=== PATIENT | male | born 1945 | race Caucasian/White ===

== ENCOUNTER → 2016-09-21 07:03 | Outpatient (CLI) | payer MEDICARE ==
[2010-07-17 12:59] VITALS: BMI 21.7
== END | disposition home or self-care (01) ==
LOC: D.CT 07:03
DX: A31.0 Pulmonary mycobacterial infection (principal)

== ENCOUNTER → 2017-01-15 09:53 | Outpatient (CLI) | payer MEDICARE ==
[2010-07-17 12:59] VITALS: BMI 21.7
== END | disposition home or self-care (01) ==
LOC: D.CT 09:53 → D.LAB 11:15 → D.CT 11:15
DX: J18.8 Other pneumonia, unspecified organism (principal)

== ENCOUNTER 2017-02-01 07:18 | Inpatient (IN) | payer MEDICARE ==
[2017-02-01] VITALS (8 sets, daily range): BP systolic 128–185; BP diastolic 74–94; BMI 21.0
[~2017-02-01] VITALS: Ht 167.6 cm; Wt 60.5 kg
[2017-02-01 08:30] LABS: ANION GAP 13.5 mmol/L (8-16); CALCIUM 9.1 mg/dL (8.5-10.1); CARBON DIOXIDE 25.8 mmol/L (21.0-32.0); CREATININE - SERUM 1.2 mg/dL (0.6-1.3); POTASSIUM - SERUM 4.3 mmol/L (3.5-5.1)
[2017-02-01 08:34] LABS: BASOPHILS 0.4 % (0-2); EOSINOPHILS 7.5 % (0-7); HEMOGLOBIN 15.9 g/dL (13.5-17.5); LYMPHOCYTES 26.2 % (15-50); MCHC 34.6 g/dL (31.0-37.0); MCV 101.3 fL (80.0-100.0); MEAN PLATELET VOLUME 10.9 fL (7.4-10.4); MONOCYTES 11.8 % (2-11); NEUTROPHILS 54.1 % (40-80); PLATELET COUNT 125 10x3/uL (130-400); RBC 4.54 10x6/uL (4.20-6.10); RDW 12.5 % (11.5-14.5); WBC 5.5 10x3/uL (4.8-10.8)
[2017-02-01 08:39] LABS: APTT 27.7 SECONDS (22.8-39.4); INR 1.12 (0.85-1.17); PROTIME 14.3 SECONDS (11.6-15.0)
[2017-02-01] MEDS ORDERED: LOPRESSOR25 MG PO (09:47)
[2017-02-01] MEDS ORDERED: LISINOPRIL5 MG PO (09:48)
[2017-02-01] MEDS ORDERED: XANAX0.5 MG PO (09:48)
--- NOTE | 2017-02-01 14:43 | NUR ---
CHEST TUBE HOOKED TO 20CM OF H2O SUCTION
--- NOTE | 2017-02-01 17:15 | NUR ---
TRANSFER FROM [place] BY W/C. TELEMETRY SR. IV PATENT. CT TO 20 CM SUCTION. CALL LIGHT IN REACH. WILL CONT. PLAN OF CARE.
--- NOTE | 2017-02-01 19:00 | NUR ---
INITIAL ROUNDS MADE. PT SITTING UP IN BED WITH FAMILY IN ROOM. DRSG TO RIGHT LAT CHEST TUBE CDI. CONNECTED TO WALL SUCTION, NO DRAINAGE NOTED IN CANISTER, ONLY IN TUBING. WILL CONT TO MONITOR.
[2017-02-02] VITALS (7 sets, daily range): BP systolic 100–156; BP diastolic 53–87; Ht 167.6 cm; Wt 60.5 kg
--- NOTE | 2017-02-02 01:15 | NUR ---
RESTING WELL WITH EYES CLOSED, TELE SR. CONT TO MONITOR.
[2017-02-02 06:08] LABS: BASOPHILS 0.5 % (0-2); EOSINOPHILS 5.1 % (0-7); HEMATOCRIT 41.2 % (42.0-54.0); HEMOGLOBIN 13.9 g/dL (13.5-17.5); LYMPHOCYTES 22.1 % (15-50); MCH 34.3 pg (26.0-34.0); MCHC 33.7 g/dL (31.0-37.0); MCV 101.7 fL (80.0-100.0); MEAN PLATELET VOLUME 10.9 fL (7.4-10.4); MONOCYTES 15.6 % (2-11); NEUTROPHILS 56.7 % (40-80); RBC 4.05 10x6/uL (4.20-6.10); RDW 12.6 % (11.5-14.5)
[2017-02-02 06:11] LABS: WBC 4.1 10x3/uL (4.8-10.8)
[2017-02-02 06:12] LABS: ALBUMIN 3.1 g/dL (3.4-5.0); ALKALINE PHOSPHATASE 130 U/L (46-116); ALT (SGPT) 43 U/L (10-68); BILIRUBIN - TOTAL 0.61 mg/dL (0.2-1.3); CALC OSMOLALITY 270 mosm/kg (275-300); CALCIUM 8.5 mg/dL (8.5-10.1); CARBON DIOXIDE 26.4 mmol/L (21.0-32.0); CHLORIDE - SERUM 103 mmol/L (98-107); CREATININE - SERUM 0.9 mg/dL (0.6-1.3); GLUCOSE 107 mg/dL (74-106); PLATELET COUNT 95 10x3/uL (130-400); POTASSIUM - SERUM 4.3 mmol/L (3.5-5.1); SODIUM 136 mmol/L (136-145); eGFR NON AFRICAN AMERICAN 89 mL/min (90-120)
[2017-02-02 06:14] LABS: UREA NITROGEN 10 mg/dL (7-18)
--- NOTE | 2017-02-02 06:28 | NUR ---
SITTING UP IN BED, NO NEEDS OR C/O VOICED AT THIS TIME. CHEST TUBE STILL REMAINS EMPTY CANISTER, SMALL AMT DRAINAGE IN TUBING.
[2017-02-02 06:38] LABS: PLATELET ESTIMATE DECREASED
--- NOTE | 2017-02-02 07:13 | NUR ---
PT IS SITTING UP IN BED DENIES ANY NEEDS. CHEST TUBE NOTED TO R CHEST WALL 20 WALL SUCTION. WILL CONT TO MONITOR
[2017-02-02 07:35] LABS: MAGNESIUM - SERUM 2.5 mg/dL (1.8-2.4); PHOSPHOROUS 2.9 mg/dL (2.5-4.9)
--- NOTE | 2017-02-02 10:23 | NUR ---
FOUND PATIENT AT 0700 NOT WEARING OXYGEN AND FLOW AT 1L. I INCREASED TJE FLOW TO 3L AND PUT IT BACK ON THE PATIENT AND TOLD THE NURSES THE OXYGEN WAS NOT TO BE WEANED PER DR. SHELBY.
--- NOTE | 2017-02-02 10:28 | NUR ---
AT 1015 THE PATIENT REFUSED HIS UPDRAFT TREATMENT AND TO WEAR HIS OXYGEN.
--- NOTE | 2017-02-02 10:56 | NUR ---
PT SITTING UP IN BED DENIES NEEDS AT THIS TIME. R CHEST WALL CHEST TUBE STILL NOTED TO R CHEST WALL 20 SUCTION. WILL CONT TO MONITOR
--- NOTE | 2017-02-02 11:14 | NUR ---
PT HAS AN ORDER TO RECEIVE A BEER WITH LUNCH AND DINNER. ASKED PT IF HE WOULD LIKE ONE WITH LUNCH, HE REFUSED. TOLD PT TO ASK ME TO ORDER HIM ONE IF HE DECIDES TO HAVE ONE WITH DINNER. PT VERBALIZES UNDERSTANDING.
--- NOTE | 2017-02-02 13:20 | NUR ---
CALLED DOWN TO PHARM SPOKE WITH [facility]. PT HAS MVI DUE AT 1345 AND IT IS NOT PRESENT ON THE FLOOR, THEY ARE BRINGING IT UP L[facility]. WILL AWAIT ARRIVAL TO START MEDICATION.
--- NOTE | 2017-02-02 13:45 | NUR ---
Patient Name: SARAH CHURCH Admission Status: Elective Accout number: [id number] Admission Date: 02-01-2017 : 1945 Admission Diagnosis: Attending: YINKA Current LOS: 1 Anticipated DC Date: Planned Disposition: Home Primary Insurance: MEDICARE A & B Discharge Planning Comments: * Is the patient Alert and Oriented? Yes 0 * How many steps to enter\exit or inside your home? 4 0 * PCP DR. GILMORE 0 * Pharmacy [facility] [address] * Preadmission Environment Home with Family 0 * ADLs Independent 0 * Equipment None 0 * Other Equipment NO MEDICAL EQUIPMENT PROVIDER PREFERENCE 0 * List name and contact numbers for known caregivers / representatives who currently or will assist patient after discharge: HUBER CARRANZA, SISTER, 0 * Community resources currently utilized None 0 * Please name any agencies selected above. NONE 0 * Additional services required to return to the preadmission environment? No 0 * Can the patient safely return to the preadmission environment? Yes 0 * Has this patient been hospitalized within the prior 30 days at any hospital? No 0 CM MET WITH PT IN ROOM TO DISCUSS DISCHARGE PLANNING AND NEEDS. PT REPORTS LIVING AT HOME INDEPENDENTLY WITH HIS EX SPOUSE. PT HAS NO MEDICAL EQUIPMENT AND NO OUTSIDE SERVICES ASSISTING IN THE HOME. CM DISCUSSED AVAILABILITY OF HOME HEALTH, REHAB SERVICES AND MEDICAL EQUIPMENT. PT DENIES DISCHARGE NEEDS AT THIS TIME AND IS HOPING TO RETURN TO WORK SOON AFTER DISCHARGE HOME. PT REPORTS FAMILY WILL PICK HIM UP FOR DISCHARGE HOME. PT PLANS TO DISCHARGE HOME, ANTICIPATES NO DISCHARGE NEEDS AT THIS TIME. CM TO FOLLOW AND ASSIST IF NEEDED. Blood Bank Worker: Osman Bernstein
--- NOTE | 2017-02-02 14:43 | NUR ---
CALLED PHARM AGAIN AND SPOKE WITH MARTINE, SHE SAID MEDICATION WAS IN ROUTE TO BE DELIVERED. [facility] CAME UP AND DROPPED OFF IVPB, BUT NO MVI FOR PT. [facility] IS ON FLOOR AND DOES NOT HAVE IT EITHER. SHE IS GOING TO ASK THEM ABOUT IT WHEN SHE GETS BACK DOWN STAIRS.
--- NOTE | 2017-02-02 19:00 | NUR ---
INITIAL ROUNDS MADE. PT SITTING UP IN BED VISITING WITH FAMILY. PT DENIES NEEDS OR C/O AT THIS TIME. RIGHT LAT CHEST TUBE INTACT TO WALL SUCTION. DRSG CDI. BANANA BAG INFUSING TO LEFT FA IV. TELE SR 75. O2 3L NC.
--- NOTE | 2017-02-02 20:25 | NUR ---
HS MEDS GIVEN WITHOUT DIFFICULTY. GIVEN ATIVAN AND DILAUDID REQUESTED. REQUESTED AND GIVEN A BEER ORDERED.
--- NOTE | 2017-02-02 22:15 | NUR ---
PT AGITATED, CONFUSED. REQUESTING ANOTHER BEER. NOTIFIED CAKE PRESS OPERATOR. ATTEMPTS TO CALM PT AND REORIENT UNSUCCUSSFUL. ALEX, MEN'S FURNISHINGS SALESPERSON IN ROOM TALKING PT DOWN. HE SEEMS TO BE RESPONDING TO HER ATTEMPTS AT REORIENTING.
--- NOTE | 2017-02-02 23:55 | NUR ---
RESTING WELL WITH EYES CLOSED, CONT TO MONITOR.
[2017-02-03 03:53] VITALS: BP 132/68
[2017-02-03 05:14] LABS: BASOPHILS 0.5 % (0-2); EOSINOPHILS 7.6 % (0-7); HEMATOCRIT 40.7 % (42.0-54.0); HEMOGLOBIN 13.7 g/dL (13.5-17.5); LYMPHOCYTES 31.3 % (15-50); MCH 34.9 pg (26.0-34.0); MCHC 33.7 g/dL (31.0-37.0); MCV 103.6 fL (80.0-100.0); MEAN PLATELET VOLUME 10.9 fL (7.4-10.4); MONOCYTES 12.1 % (2-11); NEUTROPHILS 48.5 % (40-80); PLATELET COUNT 95 10x3/uL (130-400); RBC 3.93 10x6/uL (4.20-6.10); RDW 12.7 % (11.5-14.5); WBC 3.8 10x3/uL (4.8-10.8)
[2017-02-03 05:48] LABS: ALBUMIN 2.9 g/dL (3.4-5.0); ALKALINE PHOSPHATASE 102 U/L (46-116); ALT (SGPT) 52 U/L (10-68); BILIRUBIN - TOTAL 0.71 mg/dL (0.2-1.3); CARBON DIOXIDE 24.6 mmol/L (21.0-32.0); CHLORIDE - SERUM 105 mmol/L (98-107); CREATININE - SERUM 0.9 mg/dL (0.6-1.3); GLUCOSE 91 mg/dL (74-106); POTASSIUM - SERUM 4.2 mmol/L (3.5-5.1); PROTEIN - SERUM 6.7 g/dL (6.4-8.2); SODIUM 137 mmol/L (136-145); eGFR NON AFRICAN AMERICAN 89 mL/min (90-120)
[2017-02-03 05:49] LABS: CALC OSMOLALITY 271 mosm/kg (275-300); UREA NITROGEN 7 mg/dL (7-18)
[2017-02-03 08:41] VITALS: BP 134/73
--- NOTE | 2017-02-03 10:18 | NUR ---
RESTS IN BED WITH CALL LIGHT IN REACH. CT INTACT TO RIGHT. WILL MONITOR NEEDS.
[2017-02-03 12:46] VITALS: BP 139/86
[2017-02-03 16:53] VITALS: BP 131/77
--- NOTE | 2017-02-03 19:30 | NUR ---
PT RESTING IN BED WITH FAMILY X 2 AT BEDSIDE. ALERT/ORIENTED. CHEST TUBE TO RIGHT SIDE CONNECTED TO DRAIN. DRESSING C/D/I. RESPS EVEN/NONLABORED. NO PIV PER PT REQUEST. CPOC.
--- NOTE | 2017-02-03 21:30 | NUR ---
WENT TO ROOM TO ADMINISTER HS MEDS AND PT ALSO WANTING ATIVAN AND POSSIBLY PAIN MED. REVIEWED WITH PT THAT BOTH OF THOSE MEDS WERE SET UP FOR WHEN HE HAD AN IV, SO NURSE WILL HAVE TO CALL AND GET NEW ORDERS. PT VOICED UNDERSTANDING AND REITERATED THAT HE DID NOT WANT ANOTHER IV. SPOKE WITH Altagracia WASSERMAN APN AT 2150 AND NEW ORDERS RECIEVED.
[2017-02-03 22:32] VITALS: BP 103/73
--- NOTE | 2017-02-03 23:45 | NUR ---
PAIN MED GIVEN AND ASSISTANT SCIENTIST PULLED ATIVAN, BOTH NOW GIVEN. PT READYING FOR BED. NO NEEDS VOICED. CPOC.
[2017-02-04 00:42] VITALS: BP 108/69
--- NOTE | 2017-02-04 05:11 | NUR ---
AM MED GIVEN. PORTABLE CXR OBTAINED AT BEDSIDE. PT RESTING. NO DISTRESS. CALL LIGHT IN REACH.
[2017-02-04 06:02] LABS: BASOPHILS 0.8 % (0-2); EOSINOPHILS 8.3 % (0-7); HEMATOCRIT 41.6 % (42.0-54.0); HEMOGLOBIN 13.8 g/dL (13.5-17.5); IMMATURE GRANULOCYTES 0.3 % (0-5); LYMPHOCYTES 31.4 % (15-50); MCH 34.4 pg (26.0-34.0); MCHC 33.2 g/dL (31.0-37.0); MCV 103.7 fL (80.0-100.0); MEAN PLATELET VOLUME 11.1 fL (7.4-10.4); MONOCYTES 13.5 % (2-11); NEUTROPHILS 45.7 % (40-80); PLATELET COUNT 97 10x3/uL (130-400); RBC 4.01 10x6/uL (4.20-6.10); RDW 12.6 % (11.5-14.5); WBC 3.9 10x3/uL (4.8-10.8)
[2017-02-04 06:10] VITALS: BP 164/97
[2017-02-04 06:19] LABS: ALBUMIN 2.9 g/dL (3.4-5.0); ALKALINE PHOSPHATASE 113 U/L (46-116); ALT (SGPT) 64 U/L (10-68); BILIRUBIN - TOTAL 0.74 mg/dL (0.2-1.3); CALC OSMOLALITY 274 mosm/kg (275-300); CALCIUM 8.5 mg/dL (8.5-10.1); CARBON DIOXIDE 25.5 mmol/L (21.0-32.0); CHLORIDE - SERUM 104 mmol/L (98-107); GLUCOSE 95 mg/dL (74-106); PROTEIN - SERUM 6.9 g/dL (6.4-8.2); SODIUM 138 mmol/L (136-145); eGFR NON AFRICAN AMERICAN 79 mL/min (90-120)
[2017-02-04 06:24] LABS: UREA NITROGEN 10 mg/dL (7-18)
--- NOTE | 2017-02-04 07:26 | NUR ---
PT SITTING UP IN BED, DENIES ANY NEEDS. CHEST TUBE NOTED TO R CHEST WALL 20 WALL SUCTION, PATENT. NO DRAINAGE IS NOTED. PT WITHOUT IV ACCESS. DRS ARE AWARE. WILL CONT TO MONITOR
[2017-02-04 07:29] LABS: MAGNESIUM - SERUM 1.9 mg/dL (1.8-2.4); PHOSPHOROUS 3.1 mg/dL (2.5-4.9)
[2017-02-04 07:55] VITALS: BP 168/87
--- NOTE | 2017-02-04 11:12 | NUR ---
MO FROM IR CAME TO CLAMP PT CHEST TUBE. CHEST TUBE IS NOW CLAMPED. WILL WATCH PT CLOSELY. CHEST XR SCHEDULED FOR 2 HOURS.
[2017-02-04 11:35] VITALS: BP 136/73
--- NOTE | 2017-02-04 13:16 | NUR ---
PT GOING FOR BRONCH TOMORROW AM WITH DR SHELBY. EXPLAINED PROCEDURE WITH PT AND CONSENTS ARE SIGNED AND ON THE CHART. PT DENIES ANY OTHER NEEDS AT THIS TIME. WILL CONT TO MONITOR
[2017-02-04 13:18] LABS: BASOPHILS 0.5 % (0-2); EOSINOPHILS 6.5 % (0-7); HEMATOCRIT 42.8 % (42.0-54.0); HEMOGLOBIN 14.2 g/dL (13.5-17.5); MCH 34.5 pg (26.0-34.0); MCHC 33.2 g/dL (31.0-37.0); MCV 103.9 fL (80.0-100.0); MEAN PLATELET VOLUME 10.8 fL (7.4-10.4); MONOCYTES 9.6 % (2-11); NEUTROPHILS 59.4 % (40-80); PLATELET COUNT 92 10x3/uL (130-400); RBC 4.12 10x6/uL (4.20-6.10); RDW 12.5 % (11.5-14.5); WBC 3.8 10x3/uL (4.8-10.8)
[2017-02-04 13:27] LABS: APTT 33.3 SECONDS (22.8-39.4); INR 1.12 (0.85-1.17); PROTIME 14.3 SECONDS (11.6-15.0)
--- NOTE | 2017-02-04 14:53 | NUR ---
MO FROM IR IS BACK. SAID THE CHEST XR LOOKED GOOD. SAID DR GARCIA WANTS PT HOOKED BACK UP TO WALL SUCTION AT 20 AND THEN GO FOR BRONCH TOMORROW AND HOPEFULL DC CHEST TUBE THEN. PT BACK UP TO WALL SUCTION AT 20
[2017-02-04 15:22] VITALS: BP 118/65
--- NOTE | 2017-02-04 16:38 | NUR ---
LEFT INFUSAPORT ACCESSED WITH 20 GA X 1 IN. GOOD BLOOD RETURNED WITH ASPIRATION. FLUSHED WITH NORMAL SALINE AND LUER LOCK CAPS ATTACHED. DRESSING WITH BIOPATCH AND OCCULSIVE DRESSING
--- NOTE | 2017-02-04 17:55 | NUR ---
PT SITTING UP IN BED FINISHED WITH DINNER. PT CONSUMED BOTH BEERS WITH DINNER TRAY. DENIES ANY NEEDS WILL CONT TO MONITOR
[2017-02-04 19:00] VITALS: BP 138/81
--- NOTE | 2017-02-04 19:00 | NUR ---
RECEIVED REPORT AND ASSUMED PT CARE FROM DAY SHIFT NURSE @ THIS TIME.
[2017-02-05] VITALS (7 sets, daily range): BP systolic 119–129; BP diastolic 62–678
--- NOTE | 2017-02-05 02:30 | NUR ---
PT RESTING WELL WITHOUT C/O OR DISTRESS NOTED. CALL LIGHT WITHIN REACH. WILL CONT TO MONITOR.
[2017-02-05 06:27] LABS: BASOPHILS 0.5 % (0-2); EOSINOPHILS 6.7 % (0-7); HEMATOCRIT 41.2 % (42.0-54.0); HEMOGLOBIN 13.9 g/dL (13.5-17.5); LYMPHOCYTES 23.8 % (15-50); MCH 34.8 pg (26.0-34.0); MCHC 33.7 g/dL (31.0-37.0); MEAN PLATELET VOLUME 11.4 fL (7.4-10.4); MONOCYTES 15.8 % (2-11); NEUTROPHILS 53.2 % (40-80); PLATELET COUNT 98 10x3/uL (130-400); RDW 12.5 % (11.5-14.5); WBC 3.9 10x3/uL (4.8-10.8)
--- NOTE | 2017-02-05 06:28 | NUR ---
PT RESTS WELL THIS SHIFT. VOICED C/O PAIN X1 AND MEDICATED. NPO SINCE MIDNIGHT FOR BRONCHOSCOPY TODAY. VSS, AFEBRILE. CALL LIGHT WITHIN REACH. WILL MONITOR.
[2017-02-05 07:31] LABS: ALBUMIN 2.9 g/dL (3.4-5.0); ALKALINE PHOSPHATASE 109 U/L (46-116); ALT (SGPT) 57 U/L (10-68); CALC OSMOLALITY 276 mosm/kg (275-300); CALCIUM 8.6 mg/dL (8.5-10.1); CARBON DIOXIDE 24.7 mmol/L (21.0-32.0); CHLORIDE - SERUM 103 mmol/L (98-107); GLUCOSE 98 mg/dL (74-106); MAGNESIUM - SERUM 1.8 mg/dL (1.8-2.4); PHOSPHOROUS 3.7 mg/dL (2.5-4.9); POTASSIUM - SERUM 3.8 mmol/L (3.5-5.1); PROTEIN - SERUM 6.9 g/dL (6.4-8.2); SODIUM 139 mmol/L (136-145); UREA NITROGEN 10 mg/dL (7-18); eGFR NON AFRICAN AMERICAN 79 mL/min (90-120)
--- NOTE | 2017-02-05 08:39 | NUR ---
20 GAUGE IV SITED TO RIGHT FOREARM WITH 2 ATTEMPTS. SECURED WITH TAPE AND COVERED WITH OP SITE. INITIALED AND DATED. TOLERATED WELL
--- NOTE | 2017-02-05 09:55 | NUR ---
RESTS IN BED WITHOUT COMPLAINTS. RESP UL ON 02 3L N/C. CT INTACT TO RIGHT. CALL LIGHT IN REACH. WILL MONITOR NEEDS.
--- NOTE | 2017-02-05 11:17 | NUR ---
PRE-OPS GIVEN. LEAVING FOR BRONCH BY BED.
--- NOTE | 2017-02-05 12:33 | NUR ---
Nutrition follow-up: Diet: pt now NPO for surgery PO intake has been ~75% average of meals Labs reviewed +BM Wt: 133# RDN following.
--- NOTE | 2017-02-05 13:00 | NUR ---
BACK FROM BRONCH. VS WNL. CT CLAMPED. WILL MONITOR.
[2017-02-05] MEDS ORDERED: VENTOLIN/PR2 MG/5 ML PO (15:37)
--- NOTE | 2017-02-05 15:48 | NUR ---
CT DCD BY IR NURSE.
--- NOTE | 2017-02-05 16:52 | NUR ---
Patient Name: SARAH CHURCH Encounter No: [id number] : 1945 Primary Insurance: MEDICARE A & B Anticipated DC Date: 02-05-2017 Planned Disposition: Home DCP follow-up note: CM MET WITH PT IN ROOM TO DISCUSS DISCHARGE NEEDS AND PLANNING. CM DISCUSSED AVAILABILITY OF HOME HEALTH, REHAB SERVICES AND MEDICAL EQUIPMENT. PT DENIES DISCHARGE NEEDS. FAMILY TO TRANSPORT HOME AT DISCHARGE. PT REPORTS HAVING MEDICAID AND AFTER THE DOCTOR GETS CULTURES BACK, THE DOCTOR MAY PRESCRIBE MEDICATION THAT IS EXPENSIVE. PT REPORTS HE WILL BE FOLLOWING UP WITH DR. SHELBY IN THE OFFICE TO FIND OUT. CM EXPLAINED TO PT THAT IF THE MEDICATION IS NOT AFFORDABLE, TO LET DR. SHELBY OR HIS NURSE KNOW SO THEY CAN EXPLORE OTHER OPTIONS OR THERE MAY BE A DISCOUNT PROGRAM AVAILABLE THROUGH THE COMPANY. PT REPORTED UNDERSTANDING. IMPORTANT MESSAGE FROM MEDICARE PROVIDED AND EXPLAINED. Osman Bernstein, CASE MANAGEMENT
--- NOTE | 2017-02-06 07:03 | NUR ---
PT SIGNS DISCHARGE EDUCATION. IV REMOVED, CATH TIP INTACT. AWAITING FAMILY MEMBER TO TAKE HIM HOME. TO PERSONAL AUTO VIA WC.
[2017-02-06 20:07] LABS: ACID FAST SMEAR Positive (()); AFB SPECIMEN PROCESSING Concentration (())
[2017-02-08 13:13] LABS: FUNGUS STAIN Final report (())
[2017-02-15 10:11] LABS: FUNGUS MYCOLOGY CULTURE Preliminary report (())
== END 2017-02-06 07:14 | disposition home or self-care (01) | DRG 200 ==
LOC: D.OPS 07:18 → D.CT 10:00 → D.MS 13:21 → D.OPS 13:27 → D.MS 13:27 → OBSVTIME 13:27 → D.MS 13:27 → D.M2 16:06 → D.MS 16:06 → D.M2 16:57
PROVIDERS: Family Medicine; General Practice; Internal Medicine Pulmonary Disease; ADMIT Emergency Medicine
PROC: 0W9930Z Drainage of Right Pleural Cavity with Drainage Device, Percutaneous Approach (ICD-10-PCS; 2017-02-01)
PROC: 0BBD3ZX Excision of Right Middle Lung Lobe, Percutaneous Approach, Diagnostic (ICD-10-PCS; principal; 2017-02-01 10:00)
PROC: 0BJ08ZZ Inspection of Tracheobronchial Tree, Via Natural or Artificial Opening Endoscopic (ICD-10-PCS; 2017-02-05)
DX: J93.9 Pneumothorax, unspecified (principal); A31.2 Disseminated mycobacterium avium-intracellulare complex (DMAC); I10 Essential (primary) hypertension; F41.9 Anxiety disorder, unspecified; F10.20 Alcohol dependence, uncomplicated; R91.8 Other nonspecific abnormal finding of lung field; J44.9 Chronic obstructive pulmonary disease, unspecified; J30.9 Allergic rhinitis, unspecified; F17.200 Nicotine dependence, unspecified, uncomplicated; J04.10 Acute tracheitis without obstruction

== ENCOUNTER → 2017-08-03 12:11 | Outpatient (CLI) | payer MEDICARE ==
[2017-02-02 10:00] VITALS: BMI 20.9
[~2017-08-03 12:11] MED LIST: LISINOPRIL5 MG PO; LOPRESSOR25 MG PO; VENTOLIN/PR2 MG/5 ML PO; XANAX0.5 MG PO
== END | disposition home or self-care (01) ==
LOC: D.CT 08-02 09:30
DX: A31.0 Pulmonary mycobacterial infection (principal)

== ENCOUNTER → 2017-11-08 09:49 | Outpatient (CLI) | payer MEDICARE ==
[2017-02-02 10:00] VITALS: BMI 20.9
[2017-11-08 13:44] LABS: BASOPHILS 0.6 % (0-2); EOSINOPHILS 5.4 % (0-7); HEMATOCRIT 47.2 % (42.0-54.0); HEMOGLOBIN 16.2 g/dL (13.5-17.5); IMMATURE GRANULOCYTES 0.2 % (0-5); LYMPHOCYTES 20.8 % (15-50); MCH 35.2 pg (26.0-34.0); MCHC 34.3 g/dL (31.0-37.0); MCV 102.6 fL (80.0-100.0); MONOCYTES 11.3 % (2-11); NEUTROPHILS 61.7 % (40-80); PLATELET COUNT 158 10x3/uL (130-400); RDW 12.5 % (11.5-14.5); WBC 6.7 10x3/uL (4.8-10.8)
[2017-11-08 14:02] LABS: ALBUMIN 3.7 g/dL (3.4-5.0); ALKALINE PHOSPHATASE 139 U/L (46-116); ALT (SGPT) 42 U/L (10-68); BILIRUBIN - TOTAL 0.88 mg/dL (0.2-1.3); CALC OSMOLALITY 270 mosm/kg (275-300); CALCIUM 9.8 mg/dL (8.5-10.1); CARBON DIOXIDE 29.1 mmol/L (21.0-32.0); CHLORIDE - SERUM 97 mmol/L (98-107); GLUCOSE 100 mg/dL (74-106); POTASSIUM - SERUM 4.7 mmol/L (3.5-5.1); PROTEIN - SERUM 8.2 g/dL (6.4-8.2); SODIUM 135 mmol/L (136-145); UREA NITROGEN 14 mg/dL (7-18); eGFR NON AFRICAN AMERICAN 79 mL/min (90-120)
== END | disposition home or self-care (01) ==
LOC: D.CN 09:49
PROVIDERS: Student in an Organized Health Care Education/Training Program
DX: A31.0 Pulmonary mycobacterial infection (principal); J44.9 Chronic obstructive pulmonary disease, unspecified; Z51.81 Encounter for therapeutic drug level monitoring; Z79.2 Long term (current) use of antibiotics

== ENCOUNTER → 2017-11-26 15:08 | Outpatient (CLI) | payer MEDICARE ==
[2017-02-02 10:00] VITALS: BMI 20.9
== END | disposition home or self-care (01) ==
LOC: D.RAD 15:08
DX: A31.0 Pulmonary mycobacterial infection (principal)

== ENCOUNTER → 2017-12-24 13:14 | Outpatient (CLI) | payer MEDICARE ==
[2017-02-02 10:00] VITALS: BMI 20.9
[2017-12-24 18:30] LABS: BASOPHILS 0.6 % (0-2); EOSINOPHILS 8.6 % (0-7); HEMATOCRIT 43.2 % (42.0-54.0); HEMOGLOBIN 14.9 g/dL (13.5-17.5); IMMATURE GRANULOCYTES 0.2 % (0-5); LYMPHOCYTES 25.9 % (15-50); MCH 35.2 pg (26.0-34.0); MCHC 34.5 g/dL (31.0-37.0); MCV 102.1 fL (80.0-100.0); MEAN PLATELET VOLUME 10.8 fL (7.4-10.4); MONOCYTES 11.9 % (2-11); NEUTROPHILS 52.8 % (40-80); PLATELET COUNT 154 10x3/uL (130-400); RBC 4.23 10x6/uL (4.20-6.10); RDW 12.4 % (11.5-14.5); WBC 5.4 10x3/uL (4.8-10.8)
[2017-12-24 18:51] LABS: ALBUMIN 3.5 g/dL (3.4-5.0); ALKALINE PHOSPHATASE 122 U/L (46-116); ALT (SGPT) 28 U/L (10-68); BILIRUBIN - TOTAL 1.37 mg/dL (0.2-1.3); CALC OSMOLALITY 272 mosm/kg (275-300); CALCIUM 8.8 mg/dL (8.5-10.1); CARBON DIOXIDE 22.5 mmol/L (21.0-32.0); CHLORIDE - SERUM 101 mmol/L (98-107); CREATININE - SERUM 0.8 mg/dL (0.6-1.3); POTASSIUM - SERUM 4.2 mmol/L (3.5-5.1); PROTEIN - SERUM 7.6 g/dL (6.4-8.2); SODIUM 137 mmol/L (136-145); UREA NITROGEN 14 mg/dL (7-18); eGFR NON AFRICAN AMERICAN > 90 mL/min (90-120)
[2017-12-24 22:14] LABS: GLUCOSE 64 mg/dL (74-106)
== END | disposition home or self-care (01) ==
LOC: D.LABREF 13:14
PROVIDERS: Student in an Organized Health Care Education/Training Program
DX: A31.0 Pulmonary mycobacterial infection (principal); Z51.81 Encounter for therapeutic drug level monitoring; Z79.01 Long term (current) use of anticoagulants

== ENCOUNTER → 2018-03-01 13:40 | Outpatient (CLI) | payer MEDICARE ==
[2017-02-02 10:00] VITALS: BMI 20.9
[2018-03-01 14:01] LABS: BASOPHILS 0.6 % (0-2); EOSINOPHILS 8.6 % (0-7); HEMATOCRIT 40.4 % (42.0-54.0); LYMPHOCYTES 24.7 % (15-50); MCHC 34.7 g/dL (31.0-37.0); MEAN PLATELET VOLUME 11.5 fL (7.4-10.4); MONOCYTES 13.9 % (2-11); NEUTROPHILS 52.2 % (40-80); RDW 12.4 % (11.5-14.5); WBC 5.1 10x3/uL (4.8-10.8)
[2018-03-01 14:04] LABS: PLATELET COUNT 123 10x3/uL (130-400)
[2018-03-01 14:38] LABS: ALBUMIN 3.5 g/dL (3.4-5.0); ALKALINE PHOSPHATASE 173 U/L (46-116); ALT (SGPT) 28 U/L (10-68); BILIRUBIN - TOTAL 1.07 mg/dL (0.2-1.3); CALC OSMOLALITY 270 mosm/kg (275-300); CALCIUM 8.6 mg/dL (8.5-10.1); CARBON DIOXIDE 25.7 mmol/L (21.0-32.0); CHLORIDE - SERUM 101 mmol/L (98-107); CREATININE - SERUM 0.8 mg/dL (0.6-1.3); GLUCOSE 92 mg/dL (74-106); POTASSIUM - SERUM 4.5 mmol/L (3.5-5.1); PROTEIN - SERUM 7.4 g/dL (6.4-8.2); SODIUM 136 mmol/L (136-145); UREA NITROGEN 10 mg/dL (7-18); eGFR NON AFRICAN AMERICAN > 90 mL/min (90-120)
== END | disposition home or self-care (01) ==
LOC: D.LABREF 13:40
PROVIDERS: Student in an Organized Health Care Education/Training Program
DX: Z51.81 Encounter for therapeutic drug level monitoring (principal); Z79.2 Long term (current) use of antibiotics

== ENCOUNTER → 2018-04-06 17:27 | Outpatient (CLI) | payer MEDICARE ==
[2017-02-02 10:00] VITALS: BMI 20.9
[2018-04-06 18:43] LABS: BASOPHILS 0.9 % (0-2); EOSINOPHILS 11.9 % (0-7); HEMATOCRIT 41.5 % (42.0-54.0); HEMOGLOBIN 14.2 g/dL (13.5-17.5); IMMATURE GRANULOCYTES 0.2 % (0-5); LYMPHOCYTES 29.9 % (15-50); MCH 34.6 pg (26.0-34.0); MCHC 34.2 g/dL (31.0-37.0); MCV 101.2 fL (80.0-100.0); MEAN PLATELET VOLUME 10.4 fL (7.4-10.4); NEUTROPHILS 44.1 % (40-80); PLATELET COUNT 124 10x3/uL (130-400); RDW 12.6 % (11.5-14.5); WBC 4.4 10x3/uL (4.8-10.8)
[2018-04-06 18:58] LABS: ALBUMIN 3.6 g/dL (3.4-5.0); ALKALINE PHOSPHATASE 140 U/L (46-116); ALT (SGPT) 34 U/L (10-68); CALC OSMOLALITY 275 mosm/kg (275-300); CARBON DIOXIDE 29.2 mmol/L (21.0-32.0); CHLORIDE - SERUM 100 mmol/L (98-107); CREATININE - SERUM 0.9 mg/dL (0.6-1.3); GLUCOSE 93 mg/dL (74-106); POTASSIUM - SERUM 4.3 mmol/L (3.5-5.1); PROTEIN - SERUM 7.3 g/dL (6.4-8.2); SODIUM 137 mmol/L (136-145); UREA NITROGEN 17 mg/dL (7-18); eGFR NON AFRICAN AMERICAN 89 mL/min (90-120)
== END | disposition home or self-care (01) ==
LOC: D.LABREF 17:27
PROVIDERS: Student in an Organized Health Care Education/Training Program
DX: Z51.81 Encounter for therapeutic drug level monitoring (principal); Z79.2 Long term (current) use of antibiotics

== ENCOUNTER → 2018-05-27 10:05 | Outpatient (CLI) | payer MEDICARE ==
[2017-02-02 10:00] VITALS: BMI 20.9
[~2018-05-27 10:05] MED LIST changes: +ASPIRIN81 MG PO; +BETAPACE 80 MG80 MG PO; +COMBIVENT RESPIM4 GM INH; +KEFLEX500 MG PO; +MULTI-DAY VITAM1 TAB PO; +MYAMBUTOL400 MG PO; +PLAVIX75 MG PO; +PRAVACHOL20 MG PO; +RIFADIN300 MG PO; +THIAMINE HCL50 MG PO; +ZITHROMAX250 MG PO
== END | disposition home or self-care (01) ==
LOC: D.CT 09:30
DX: A31.0 Pulmonary mycobacterial infection (principal); J44.9 Chronic obstructive pulmonary disease, unspecified

== ENCOUNTER → 2018-06-15 19:37 | Outpatient (CLI) | payer MEDICARE ==
[2017-02-02 10:00] VITALS: BMI 20.9
[2018-06-15 20:18] LABS: BASOPHILS 0.5 % (0-2); EOSINOPHILS 9.6 % (0-7); HEMATOCRIT 39.7 % (42.0-54.0); HEMOGLOBIN 13.5 g/dL (13.5-17.5); IMMATURE GRANULOCYTES 0.2 % (0-5); LYMPHOCYTES 26.5 % (15-50); MCH 35.1 pg (26.0-34.0); MCV 103.1 fL (80.0-100.0); MEAN PLATELET VOLUME 11.2 fL (7.4-10.4); MONOCYTES 13.5 % (2-11); NEUTROPHILS 49.7 % (40-80); PLATELET COUNT 124 10x3/uL (130-400); RBC 3.85 10x6/uL (4.20-6.10); RDW 13.1 % (11.5-14.5); WBC 4.4 10x3/uL (4.8-10.8)
[2018-06-15 20:42] LABS: ALBUMIN 3.5 g/dL (3.4-5.0); ALKALINE PHOSPHATASE 147 U/L (46-116); ALT (SGPT) 31 U/L (10-68); BILIRUBIN - TOTAL 0.85 mg/dL (0.2-1.3); CALC OSMOLALITY 273 mosm/kg (275-300); CALCIUM 8.5 mg/dL (8.5-10.1); CARBON DIOXIDE 26.9 mmol/L (21.0-32.0); CHLORIDE - SERUM 102 mmol/L (98-107); CREATININE - SERUM 0.9 mg/dL (0.6-1.3); GLUCOSE 79 mg/dL (74-106); POTASSIUM - SERUM 4.4 mmol/L (3.5-5.1); PROTEIN - SERUM 7.1 g/dL (6.4-8.2); SODIUM 137 mmol/L (136-145); UREA NITROGEN 14 mg/dL (7-18); eGFR NON AFRICAN AMERICAN 89 mL/min (90-120)
== END | disposition home or self-care (01) ==
LOC: D.LABREF 19:37
PROVIDERS: Student in an Organized Health Care Education/Training Program
DX: Z51.81 Encounter for therapeutic drug level monitoring (principal); Z79.2 Long term (current) use of antibiotics

== ENCOUNTER 2018-06-25 18:43 | Inpatient (IN) | payer MEDICARE ==
[~2018-06-25] VITALS: Ht 167.6 cm; Wt 57.5 kg
--- NOTE | ~2018-06-25 | OP ---
PATIENT NAME: SARAH CHURCH MEDICAL RECORD: [id number] :[birth year] LOCATION:D[facility] D.2310 ADMISSION DATE:06/25/18 SURGEON: TODD SMITH MD DATE OF OPERATION: 06/28/2018 PROCEDURES: 1. PTCA stent LAD. 2. PTCA stent left circumflex. 3. Intravascular ultrasound of the LAD. 4. Intravascular ultrasound of left circumflex. 5. Left heart catheterization. 6. Selective coronary angiography. 7. Left ventriculogram. INDICATION: Angina and coronary artery disease. PROCEDURE IN DETAIL: After informed consent was obtained and after a detailed description of risks, benefits as well as alternative therapies, the patient elected to proceed with angiogram and angioplasty. The right radial area was prepped and draped in normal sterile fashion. Right femoral artery was cannulated via modified Seldinger technique with placement of 6-Mohawk sheath. All catheters exchanged through this sheath. FINDINGS: The left ventriculogram was performed in standard 30-degree ZACARIAS view, reveals preserved cardiac wall motion, ejection fraction 50%. SELECTIVE CORONARY ANGIOGRAPHY: 1. Left main is with no significant angiographic disease. 2. Left anterior descending has greater than 85% stenosis confirmed by intravascular ultrasound throughout the proximal vessel. 3. The left circumflex has an early first obtuse marginal, greater than 85% stenosis throughout the proximal vessel confirmed by intravascular ultrasound. 4. The right coronary has multiple areas of 80% stenosis. PTCA STENT OF THE LAD AND CIRCUMFLEX: The LAD was addressed with a 3.0 x 30 mm Panfilo stent, the left circumflex with a 2.5 x 22 mm Panfilo stent. Result was 0% residual stenosis. OVERALL IMPRESSION: Successful PTCA stent of the LAD and circumflex, both going from greater than 85% initial stenosis to 0% residual. PLAN: PTCA stent of the RCA in the near future. TRANSINT:[id number] Voice Confirmation ID: [id number] DOCUMENT ID: [id number] TODD SMITH MD at 1235 CC: [id number] DICTATION DATE: 06/28/18 1001 CONE CLEANER: 06/28/18 1044 ADM IN [facility] [id number] [place] [address]
--- NOTE | ~2018-06-25 | MORECARE ---
CASE MANAGEMENT DISCHARGE SUMMARY PATIENT: SARAH CHURCH UNIT: [id number] ADM DATE: 06/25/18 AGE: 72 : [birth year] SEX: M ROOM/BED: D.2310 AUTHOR: KENZIE FAIR PHYSICIAN: REFERRING PHYSICIAN: LUIS VARGAS MD DATE OF SERVICE: 07/05/18 Discharge Plan Patient Name: SARAH CHURCH Facility: [facility]:[place] : 1945 Planned Disposition: Home Anticipated Discharge Date: 07/03/18 Discharge Date: 07/03/2018 Expected LOS: 8 Initial Reviewer: [email or web address] Initial Review Date: 06/25/2018 Generated: 07/05/18 7:02 pm Comments DCP- Discharge Planning Updated by [email or web address]: Jacquelin Alvarez on 07/03/18 12:[address] LUIS FELIPE, PRIMARY NURSE, WAS REVIEWING DISCHARGE INSTRUCTIONS. PATIENT DRESSED AND HIS SON IS AT THE BEDSIDE. HE IS ANXIOUS TO LEAVE. BOTH FIRMLY DENY ANY NEEDS. DECLINES HOME HEALTH OR COMMUNITY SERVICES. CM ADVISED HE IS ON A NUMBER OF NEW MEDICATIONS. BOTH STATE THAT THE PATIENT' SISTER WILL ASSIST WITH ANY NEEDS. HIS SON WILL PROVIDE TRANSPORTATION. DCP- Discharge Planning Updated by [email or web address]: Janell Salazar on 06/28/18 2:[address] Patient Name: SARAH CHURCH Admission Status: ER Accout number: [id number] Admission Date: 06-25-2018 : 1945 Admission Diagnosis: Attending: LUIS VARGAS Current LOS: 3 Anticipated DC Date: Planned Disposition: Home Primary Insurance: MEDICARE A & B Discharge Planning Comments: CM met with patient at bedside. Patient states he plans on returning to his home with his ex- upon discharge. Patient denies any discharge needs at this time. Patient may need walk test if he is still requiring 02 upon discharge. CM will continue to follow and assist as needed with discharge planning / needs. Mechanical Engineering Officer: Janell Slaazar DCPIA - Discharge Planning Initial Assessment Updated by [email or web address]: Janell Salazar on 06/28/18 2:52 pm * Is the patient Alert and Oriented? Yes * How many steps to enter\exit or inside your home? * PCP DEIRDRE * [facility] * Preadmission Environment Home with Family * ADLs Independent * Equipment None * List name and contact numbers for known caregivers / representatives who currently or will assist patient after discharge: HUBER CARRANZA - [facility] - [phone] * Verbal permission to speak to the caregivers and representatives has been obtained from the patient. Yes * Community resources currently utilized None * Additional services required to return to the preadmission environment? No * Can the patient safely return to the preadmission environment? Yes * Has this patient been hospitalized within the prior 30 days at any hospital? No Last DP export: 07/03/18 12:24 p Patient Name: SARAH CHURCH Page [id number] at 1802 All edits/amendments must be made on the electronic document DICTATION DATE: 07/05/181801 PATTERNMAKER ALL AROUND: TAMELA 07/05/181801 RPT#: [id number] DC DATE:07/03/18 STATUS: DIS IN [facility] [address] [place] [address] END OF REPORT
--- NOTE | ~2018-06-25 | MORECARE ---
CASE MANAGEMENT DISCHARGE SUMMARY PATIENT: SARAH CHURCH UNIT: [id number] ADM DATE: 06/25/18 AGE: 72 : [birth year] SEX: M ROOM/BED: D.2310 AUTHOR: MANJULADOC PHYSICIAN: REFERRING PHYSICIAN: LUIS VARGAS MD DATE OF SERVICE: 06/28/18 Discharge Plan Patient Name: SARAH CHURCH Facility: [facility]:[place] : 1945 Planned Disposition: Home Anticipated Discharge Date: Discharge Date: Expected LOS: Initial Reviewer: [email or web address] Initial Review Date: 06/25/2018 Generated: 06/28/18 4:01 pm Comments DCP- Discharge Planning Updated by [email or web address]: Janell Salazar on 06/28/18 1:[address] Patient Name: SARAH CHURCH Admission Status: ER Accout number: [id number] Admission Date: 06-25-2018 : 1945 Admission Diagnosis: Attending: LUIS VARGAS Current LOS: 3 Anticipated DC Date: Planned Disposition: Home Primary Insurance: MEDICARE A & B Discharge Planning Comments: CM met with patient at bedside. Patient states he plans on returning to his home with his ex- upon discharge. Patient denies any discharge needs at this time. Patient may need walk test if he is still requiring 02 upon discharge. CM will continue to follow and assist as needed with discharge planning / needs. Park Guard: Janell Salazar DCPIA - Discharge Planning Initial Assessment Updated by [email or web address]: Janell Salazar on 06/28/18 2:52 pm * Is the patient Alert and Oriented? Yes * How many steps to enter\exit or inside your home? * PCP DEIRDRE * [facility] * Preadmission Environment Home with Family * ADLs Independent * Equipment None * List name and contact numbers for known caregivers / representatives who currently or will assist patient after discharge: HUBER CARRANZA - [facility] - [phone] * Verbal permission to speak to the caregivers and representatives has been obtained from the patient. Yes * Community resources currently utilized None * Additional services required to return to the preadmission environment? No * Can the patient safely return to the preadmission environment? Yes * Has this patient been hospitalized within the prior 30 days at any hospital? No Last DP export: 06/28/18 1:51 Patient Name: SARAH CHURCH Page [id number] at 1501 All edits/amendments must be made on the electronic document DICTATION DATE: 06/28/18 150 MOLD SPRAYER: TAMELA 06/28/18 150 RPT#: [id number] DC DATE: STATUS: ADM IN [facility] [address] [place] [address] END OF REPORT
--- NOTE | ~2018-06-25 | HEMODYNAMI ---
PATIENT:SARAH CHURCH MEDICAL RECORD: [id number] : 49 LOCATION:[facility] D.2310 [facility]# [id number] ADMISSION DATE: 06/25/18 Generatedon:06/29/201811:25 Patient name: SARAH CHURCH Patient #: [id number] SSN: : 1945 Date of study: 06/29/2018 Page: Of Hemodynamic Procedure Report Patient Data Patient Demographics Procedure consent was obtained First Name: SARAH Gender: Male Last Name: RANJIT : 1945 [facility] Initial: J Age: 72 year(s) Patient #: [id number] Race: Unknown Additional ID: [id number] Contact details [address]: [address] [place] [address] State: [place] City: [place] Zip code: [address] Past Medical History Allergies: No known allergies Admission Admission Data Admission Date: 06/25/2018 Admission Time: 22:43 Room #: D.2310 Lab Results Lab Result Date: 06/28/2018 Lab Result Time: 15:19 Biochemistry Name Units Result Min Max BUN mg/dl 15 --(--*-)-- 7 18 Creatinine mg/dl 1.2 --(---*)-- 0.6 1.3 CBC Name Units Result Min Max Hematocrit % 48 --(-*--)-- 42 54 Hemoglobin g/dl 16.4 --(--*-)-- 13.5 17.5 Procedure Procedure Types Cath Procedure PCI Procedure Coronary Stent Coronary Stent Initial Procedure Description Procedure Date Procedure Date: 06/29/2018 Procedure Start Time: 11:13 Procedure End Time: 11:24 Procedure Staff Name Function Reggie Guardado MD Performing Physician Graciela Castro RT Monitor Eduar Louise RN Nurse Triny Aleman RT Scrub Procedure Data Cath Procedure Fluoroscopy Diagnostic fluoroscopy Total fluoroscopy Time: 2.8 time: 2.8 min min Diagnostic fluoroscopy Total fluoroscopy dose: 189 dose: 189 mGy mGy Contrast Material Contrast Material Type Amount (ml) Isovue 300 50 Entry Location Entry Primary Successful Side Size Upsize Upsize Entry Closure Succes sful Closure Location (Fr) 1 (Fr) 2 (Fr) Remarks Device Remarks Femoral Right 6 Fr Exoseal artery Short Estimated blood loss: 10 ml Procedure Complications No complications Procedure Medications Medication Administration Route Dosage Oxygen 4 l/min Lidocaine 2% added to field 20 Heparin Flush Bag added to field 2 bags (1000units/500ml NS) 0.9% NaCl I.V. 100 ml/hr Versed I.V. 2 mg Fentanyl I.V. 50 mcg Heparin Bolus I.V. 4000 units Fentanyl I.V. 50 mcg Hemodynamics Rest Pre Cath Intra NCS Post Cath Vital Signs Time Heart Resp SPO2 etCO2 NIBP Rhythm Pain Sedation Rate (ipm) (%) (mmHg) (mmHg) Status Level (bpm) 11:07:16 69 14 94 0 109/63(77) NSR 0 (11) 10(A) , No pain 11:11:22 68 16 94 0 103/57(82) NSR 0 (11) 9(A) , No pain 11:15:23 67 17 94 0 119/60(93) NSR 0 (11) 9(A) , No pain 11:19:29 74 15 94 0 105/65(80) NSR 0 (11) 9(A) , No pain 11:23:33 69 18 94 0 124/60(82) NSR 0 (11) 9(A) , No pain Medications Time Medication Route Dose Verified Delivered Reason Notes Effectiveness by by 11:05:20 Oxygen high 4 Reggie Buffie used for flow l/min Debby Louise RN procedure 11:05:29 Lidocaine 2% added 20ml Reggie Reggie for local to vial Debby Guardado MD anesthetic field 11:05:35 Heparin Flush added 2 Reggie Reggie used for Bag to bags Debby Guardado MD procedure (1000units/500ml field NS) 11:05:44 0.9% NaCl I.V. 100 Reggie Buffie Per physician ml/hr Debby Louise RN 11:09:17 Versed I.V. 2 mg Reggie Buffie for sedation Debby Louise RN 11:09:22 Fentanyl I.V. 50 Reggie Huttonie for sedation mcg Debby Louise RN 11:14:33 Heparin Bolus I.V. 4000 Reggie Buffie for verifi ed units Debby Louise RN anticoagulation with dr guardado 11:16:36 Fentanyl I.V. 50 Reggie Witt for sedation [facility] [place] Debby Louise payroll benefits clerk Log Time Note 10:40:59 Time tracking: Regular hours (M-F 7:00 - 5:00) 10:41:03 Plan of Care:Hemodynamics will remain stable., Cardiac rhythm will remain stable., Comfort level will be maintained., Respiratory function will remain adequate., Patient/ family verbilizes understanding of procedure., Procedure tolerated without complication., Recovers from procedure without complications.. 10:42:50 Triny Ash RT(R) sent for patient. Start room use. 10:46:54 Patient received from Pre/Post Procedure Room to CCL 2 Alert and oriented. Tansferred to table in Supine position. 10:47:01 Warm blankets applied, and hilary hugger turned on for patient comfort. 10:47:02 Correct patient and procedure confirmed by team. 10:47:04 Signed procedure consent form obtained from patient. 10:47:18 H&P Date Dictated: 06/28/2018 Within 30 days and on chart., H&P Addendum completed by physician on day of procedure. (MUST COMPLETE FOR ALL OUTPATIENTS). 10:47:21 Pre-procedure instructions explained to patient. 10:47:22 Family in waiting room. 10:47:24 Patient NPO since Midnight. 10:47:43 Patient allergic to No known allergies 10:47:47 Is the patient allergic to Iodine/contrast media? No. 10:47:49 Was the patient premedicated? Yes 10:47:52 Is patient on blood thinner?Yes 10:48:01 ACC The patient was administered the following blood thiners within the last 24 hours: ACCPlavix 10:49:02 Patient diabetic? No. 10:49:08 Snore? No 10:49:09 Sleep apnea? No 10:49:10 Deviated septum? No 10:49:11 Opens mouth fully? Yes 10:49:12 Sticks out tongue? Yes 10:49:19 Dentures? No out 10:49:25 Patient pain scale 0/10 ?. 10:49:33 IV patent on arrival in left forearm with 0.9% NaCl at [facility]. 10:49:58 Right groin area was prepped with chlora-prep and draped in sterile fashion 10:49:59 Alarms reviewed by R. N. 10:50:00 Sharps counted by scrub and verified by R.N. 10:54:02 Previous problem with sedation/anesthesia? No ? 10:54:11 Pre procedure: right dorsailis pedis pulse 2+ Normal; easily identifiable; not easily obliterated 10:58:42 IV patent on arrival in Left upper arm with 0.9% NaCl at [facility]. 11:05:20 Oxygen 4 l/min high flow was administered by Eduar Louise RN; used for procedure; 11:05:29 Lidocaine 2% 20ml vial added to field was administered by Reggie Guardado MD; for local anesthetic; 11:05:35 Heparin Flush Bag (1000units/500ml NS) 2 bags added to field was administered by Reggie Guardado MD; used for procedure; 11:05:44 0.9% NaCl 100 ml/hr I.V. was administered by Eduar Louise RN; Per physician; 11:06:01 Vital chart was started 11:07:46 Airway obstruction? Yes lung bacteria 11:07:54 Physician paged 11:08:24 Physician arrived 11:08:26 --------ALL STOP TIME OUT------ 11:08:28 Final Timeout: patient, procedure, and site verified with staff and physician. All members of the team are in agreement. 11:08:38 Right groin site verified by team. 11:08:44 Physical assessment completed. ASA score P 2 - A patient with mild systemic disease as per Reggie Guardado MD. 11:08:48 Sedation plan: IV Moderate Sedation Medication:Versed, Fentanyl 11:09:03 Zero performed for pressure channel P1 11:09:17 Versed 2 mg I.V. was administered by Eduar Louise RN; for sedation; 11::22 Fentanyl 50 mcg I.V. was administered by Eduar Louise RN; for sedation; 11::28 Use device set Femoral Dx 11:09:29 ACIST Syringe (57499) opened to sterile field. 11:09:30 Bag Decanter (2002S) opened to sterile field. 11:09:43 INFLATOR Merit BasixCompak (XN1617) opened to sterile field. 11:09:44 SHEATH 6FR [place] (IWF317) opened to sterile field. 11:09:45 Medline Cath Pack ([id number]) opened to sterile field. 11:09:47 DIAGNOSTIC WIRE .035 260cm J wire (913110) opened to sterile field. 11:09:48 ACIST Hand Control (08806) opened to sterile field. 11:09:49 ACIST Manifold (73225) opened to sterile field. 11:09:50 Tegaderm 4 x 4 (1626W) opened to sterile field. 11:09:52 PERCUTANEOUS ENTRY 19GA needle opened to sterile field. 11:10:02 CHOICE PT Extra Support 182cm wire ([id number]) opened to sterile field. 11:13:35 Procedure started. 11:13:35 Full Disclosure recording started 11:13:39 Local anesthetic to right femoral artery with Lidocaine 2% by Reggie Guardado MD.INITIAL ACCESS ONLY 11:13:49 A 6 Fr Short sheath was inserted into the Right Femoral artery 11:13:57 6 Fr AR2 guide catheter was inserted over the wire 11:14:03 choice pt ex wire advanced. 11:14:33 Heparin Bolus 4000 units I.V. was administered by Eduar Louise RN; for anticoagulation; verified with dr guardado 11:14:47 Wire advanced across lesion. 11:16:36 Fentanyl 50 mcg I.V. was administered by Eduar Louise RN; for sedation; 11:17:25 Place stent Inflation Number: 1 A DANIELLA RX 2.75 x 38 stent ([id number]) was prepped and advanced across the Dist RCA. The stent was deployed at 13 VALERIE for 0:10 (min:sec). 11:17:43 Stent catheter was removed intact over wire. 11:19:34 Place stent Inflation Number: 1 A DANIELLA RX 3.0 x 38 stent ([id number]) was prepped and advanced across the Mid RCA. The stent was deployed at 13 VALERIE for 0:13 (min:sec). 11:20:19 EXOSEAL 6Fr (EX600) opened to sterile field. 11:20:23 Stent catheter was removed intact over wire. 11:20:24 Wire removed. 11:20:24 Guide catheter removed. 11::44 Sheath removed intact; hemostasis achieved with Exoseal to the Right Femoral artery. 11:22:47 Procedure ended.(Physican Out) 11:23:11 Fluoroscopy time 02.80 minutes. 11:23:17 Flurop Dose total: 189 11:23:17 Fluoroscopy dose: 189 mGy 11:23:22 Contrast amount:Isovue 300 50ml. 11:23:23 Sharps counted by scrub and verified by R.N. 11:23:25 Insertion/operative site no bleeding no hematoma. 11:23:26 Post Procedure Pulses reassessed and unchanged 11:23:29 Post-procedure physical assessment completed. ASA score P 2 - A patient with mild systemic disease as per Reggie Guardado MD. 11:23:32 Post procedure rhythm: unchanged. 11:23:34 Estimated blood loss: 10 ml 11:23:36 Post procedure instruction explained to patient.Patient verbalizes understanding. 11:23:46 Procedure and supply charges have been captured, reviewed, submitted and are correct. 11:24:04 Procedure Complication : No complications 11:24:06 Vital chart was stopped 11:24:07 See physician's report for complete and final results. 11:24:08 Report given to Pre/Post Procedure Room. 11:24:10 Patient transfered to Pre/Post Procedure Room with Stretcher. 11:24:13 Procedure ended. 11:24:13 Full Disclosure recording stopped 11:24:15 End room use (Document Last) Intervention Summary Intervention Notes Time ActionType Lesion and Equipment Used Action# Pressure Duration Attributes 11:17:25 Place stent Dist RCA DANIELLA RX 2.75 x 1 13 00:10 38 stent ([id number]) 11:19:34 Place stent Mid RCA DANIELLA RX 3.0 x 1 13 00:13 38 stent ([id number]) Device Usage Item Name Manufacture Quantity Catalog Number Hospital Part Current M inimal Lot# / Charge Number Stock Stock Serial# Code ACIST Syringe Acist 1 98114 756842 740887 849004 2 0 (87357) Medical Systems Inc Bag Decanter Microtek 1 141208 53989 019294 5 () Medical Inc. INFLATOR Merit Merit 1 [id number] 131526 129783 711441 1 5 Intentive Communications (HT5195) SHEATH 6FR Terumo 1 EEI483 999731 316802 139455 4 0 [place] (VSW280) Medline Cath Medline 1 [id number] 855346 59965 791797 5 Pack ([id number]) DIAGNOSTIC [facility] [place] 1 709811 935153 342258 505315 3 0 WIRE .035 260cm J wire (720658) ACIST Hand Acist 1 19773 271837 853483 250209 5 Control Medical (59027) Systems Inc ACIST Manifold Acist 1 40591 631970 478284 679534 5 (11353) Medical Systems Inc Tegaderm 4 x 4 3M 1 1626W 818571 492567 068750 5 (1626W) PERCUTANEOUS Cook Medical 1 C95038 419825 240534 5 ENTRY 19GA needle CHOICE PT [place] 1 [id number] 349673 902519 970637 5 Extra Support Scientific 182cm wire ([id number]) DANIELLA RX 2.75 x Medtronic 1 [id number] 953121 3174223 194070 5 [id number] 38 stent ([id number]) DANIELLA RX 3.0 x Medtronic 1 [id number] 429139 2779948 790466 5 [id number] 38 stent ([id number]) EXOSEAL 6Fr Cardinal 1 EX600 022342 227452 287483 1 0 (EX600) Health Signature Audit [place] Stage Time Signature Unsigned Intra-Procedure 06/29/2018 Graciela Castro 11:25:46 AM RT(R) Signatures Monitor : Graciela Castro Signature : RT Date : Time : [facility] [address] [place] [address]
--- NOTE | ~2018-06-25 | EC ---
PATIENT:SARAH CHURCH DATE OF SERVICE: 06/25/18 SEX: M MEDICAL RECORD: [id number] DATE OF : [birth year] LOCATION:[place] [address] AGE OF PATIENT: 72 ADMISSION DATE: 06/25/18 REFERRING PHYSICIAN: INTERPRETING PHYSICIAN: MITCH RIOS MD ECHOCARDIOGRAM REPORT ECHO CHARGES 4 ECHO COMPLETE Date: 06/26/18 CLINICAL DIAGNOSIS: AFIB ECHOCARDIOGRAPHIC MEASUREMENTS (adult normal given) AC root (d.<3.7cm) 2.9 cm LV Septum d (<1.2 cm> 0.8 cm Valve Excursion 1.6 cm LV Septum (systole) 1.3 cm Left Atria (s.<4.0cm> 3.2 cm LVPW d(<1.2cm) 0.7 cm RV (d.<2.3cm) 2.5 cm LVPW (sytole) 0.8 cm LV diastole(<5.6CM) 4.9 cm MV E-F(>70mm/sec) cm LV systole 3.8 cm LVOT Diameter 2.0 cm MV exc.(>10mm) cm Est.ejection fraction (50-75%) % DOPPLER: LVIT cm/sec A 36 cm/sec E 97 cm/sec LA cm/sec RVSP 48.4 mmHg LVOT 71. cm/sec AOP1/2T m/s Asc. Ao 85 cm/sec RVOT 63 cm/sec RA cm/sec PA 66 cm/sec AV Gradient Peak 2.9 mmHg AV Mean 1.6 mmHg AV Area 2.4 cm MV Gradient Peak 3.6 mmHg MV Mean 1.3 mmHg MV Area cm COMMENTS: 4 Avionics Electrical Engineer: Franchesca HSIEH Patient Access Associate: 4 Dr. Rios TAPE# PACS Pericardial Effusion N DATE OF SERVICE: PROCEDURE: Transthoracic echocardiogram. FINDINGS: 1. Left ventricle shows normal size, shape, structure, and function, ejection fraction of 55% to 60%. There are no obvious regional wall motion abnormalities. 2. The left atrium is normal. 3. The aortic valve is normal. ECHOCARDIOGRAM REPORT [id number] SARAH CHURCH 4. The mitral valve has mild mitral regurgitation. 5. The tricuspid valve has mild tricuspid regurgitation. 6. The right ventricle is normal. The right atrium is normal. 7. The patient has trace pulmonic insufficiency. 8. The right ventricular systolic pressure is mildly to moderately elevated at 48 mmHg. CONCLUSION: The patient has a near normal echocardiogram for stated age with normal function and no regional wall motion abnormalities. TRANSINT:[id number] Voice Confirmation ID: [id number] DOCUMENT ID: [id number] MITCH RIOS MD at 0916 CC: [id number] DICTATION DATE: 06/27/18 0540 RECEIVER: 06/27/18 0737 DIS IN 07/03/18 [place] [id number] [place] [address]
--- NOTE | ~2018-06-25 | MORECARE ---
CASE MANAGEMENT DISCHARGE SUMMARY PATIENT: SARAH CHURCH UNIT: [id number] ADM DATE: 06/25/18 AGE: 72 : [birth year] SEX: M ROOM/BED: D.2310 AUTHOR: MANJULADOC PHYSICIAN: REFERRING PHYSICIAN: LUIS VARGAS MD DATE OF SERVICE: 07/03/18 Discharge Plan Patient Name: SARAH CHURCH Facility: [facility]:[place] : 1945 Planned Disposition: Home Anticipated Discharge Date: 07/03/18 Discharge Date: Expected LOS: 8 Initial Reviewer: [email or web address] Initial Review Date: 06/25/2018 Generated: 07/03/18 2:24 pm Comments DCP- Discharge Planning Updated by [email or web address]: Janell Salazar on 06/28/18 2:[address] Patient Name: SARAH CHURCH Admission Status: ER Accout number: [id number] Admission Date: 06-25-2018 : 1945 Admission Diagnosis: Attending: LUIS VARGAS Current LOS: 3 Anticipated DC Date: Planned Disposition: Home Primary Insurance: MEDICARE A & B Discharge Planning Comments: CM met with patient at bedside. Patient states he plans on returning to his home with his ex- upon discharge. Patient denies any discharge needs at this time. Patient may need walk test if he is still requiring 02 upon discharge. CM will continue to follow and assist as needed with discharge planning / needs. Metal Crafts Teacher: Janell Salazar DCPIA - Discharge Planning Initial Assessment Updated by [email or web address]: Janell Salazar on 06/28/18 2:52 pm * Is the patient Alert and Oriented? Yes * How many steps to enter\exit or inside your home? * PCP DEIRDRE * [facility] * Preadmission Environment Home with Family * ADLs Independent * Equipment None * List name and contact numbers for known caregivers / representatives who currently or will assist patient after discharge: HUBER CARRANZA - [facility] - [phone] * Verbal permission to speak to the caregivers and representatives has been obtained from the patient. Yes * Community resources currently utilized None * Additional services required to return to the preadmission environment? No * Can the patient safely return to the preadmission environment? Yes * Has this patient been hospitalized within the prior 30 days at any hospital? No Last DP export: 06/28/18 3:01 Patient Name: SARAH CHURCH Page [id number] at 1324 All edits/amendments must be made on the electronic document DICTATION DATE: 07/03/18 1323 C[employer]TON [employer] SUPERVISOR: TAMELA 07/03/18 1323 RPT#: [id number] DC DATE: STATUS: ADM IN [facility] [address] [place] [address] END OF REPORT
--- NOTE | ~2018-06-25 | OP ---
PATIENT NAME: SARAH CHURCH MEDICAL RECORD: [id number] :[birth year] LOCATION:[facility] D.2310 ADMISSION DATE:06/25/18 SURGEON: TODD SMITH MD DATE OF OPERATION: 06/29/2018 DATE OF SERVICE: 06/29/2018 PROCEDURES: 1. PTCA stent RCA. 2. Selective coronary angiography. INDICATION: Angina and coronary artery disease. PROCEDURE IN DETAIL: After informed consent was obtained and after a detailed explanation of risks, benefits as well as alternative therapies, the patient elected to proceed with angiogram and angioplasty. The right femoral area was prepped and draped in a normal sterile fashion. The right femoral artery was cannulated via modified Seldinger technique with placement of 6-Qatari sheath. All catheters exchanged through this sheath. FINDINGS: The right coronary has multiple areas of 80+ percent stenosis addressed with a 2.75 x 38 and 3.0 x 38, both Panfilo stents. Result was 0% residual stenosis. OVERALL IMPRESSION: Successful percutaneous transluminal coronary angioplasty stent of the right coronary artery going from multiple areas of 80+ percent initial stenosis to 0% residual. TRANSINT:[id number] Voice Confirmation ID: [id number] DOCUMENT ID: [id number] TODD SMITH MD at 1816 CC: [id number] DICTATION DATE: 06/29/18 1127 ELECTRICAL PARTS RECONDITIONER: 06/29/18 1146 ADM IN [place] [id number] [place] [address]
--- NOTE | ~2018-06-25 | HEMODYNAMI ---
PATIENT:SARAH CHURCH MEDICAL RECORD: [id number] : 49 LOCATION:[facility] D231[facility]# [id number] ADMISSION DATE: 06/25/18 Generatedon:06/28/201810:04 Patient name: SARAH CHURCH Patient #: [id number] SSN: : 1945 Date of study: 06/28/2018 Page: Of Hemodynamic Procedure Report Patient Data Patient Demographics Procedure consent was obtained First Name: SARAH Gender: Male Last Name: RANJIT : 1945 [facility] Initial: J Age: 72 year(s) Patient #: [id number] Race: Unknown Additional ID: [id number] Contact details [address]: [address] [place] [address] State: [place] City: [place] Zip code: [address] Past Medical History Allergies: No known allergies Admission Admission Data Admission Date: 06/25/2018 Admission Time: 22:43 Room #: [facility] Procedure Procedure Types Cath Procedure Diagnostic Procedure LHC LH w/Coronaries FFR/IVUS Intra-Coronary IVUS Initial Intra-Coronary IVUS Additional Sedation Charges Moderate Sedation up to 15 minutes PCI Procedure Coronary Stent Coronary Stent Initial x2 Procedure Description Procedure Date Procedure Date: 06/28/2018 Procedure Start Time: 9:39 Procedure End Time: 10:00 Procedure Staff Name Function Reggie Guardado MD Performing Physician Eduar Louise RN Tanner Rotary Drum Continuous Process Hung Flores RT Monitor Samina Chang RT Scrub Chrissy Allen RN Nurse Procedure Data Cath Procedure Fluoroscopy Diagnostic fluoroscopy Total fluoroscopy Time: 5.6 time: 5.6 min min Diagnostic fluoroscopy Total fluoroscopy dose: 627 dose: 627 mGy mGy Contrast Material Contrast Material Type Amount (ml) Isovue 300 79 Entry Location Entry Primary Successful Side Size Upsize Upsize Entry Closure Egan ccessful Closure Location (Fr) 1 (Fr) 2 (Fr) Remarks Device Remarks Radial Right 6 Fr Mechanical artery Short Compression Estimated blood loss: 10 ml Diagnostic catheters Device Type Used For End Catheter Placement DIAGNOSTIC Shiro 110cm 5 Procedure Fr catheter ([id number]) Procedure Complications No complications Procedure Medications Medication Administration Route Dosage 0.9% NaCl I.V. 100 ml/hr Oxygen etCO2 Nasal cannula 4 Lidocaine 2% added to field 20 Heparin Flush Bag added to field 2 bags (1000units/500ml NS) Versed I.V. 1 mg Fentanyl I.V. 50 mcg Radial Cocktail added to field 1 syringe (Verapomil 2mg/Nitro 400mcg/Heparin 1500units) Versed I.V. 1 mg Heparin Bolus I.V. 4000 units Versed I.V. 0.5 mg Plavix P.O. 75 mg Hemodynamics Rest Heart Rate: 68 (bpm) Snapshots Pre Cath Intra NCS Post Cath Vital Signs Time Heart Resp SPO2 etCO2 NIBP (mmHg) Rhythm Pain Sedation Rate (ipm) (%) (mmHg) Status Level (bpm) 9:27:55 70 17 98 16.5 183/96(150) NSR 0 (11) 10(A) , No pain 9:32:24 71 18 97 11.2 138/72(119) NSR 0 (11) 10(A) , No pain 9:36:36 68 12 97 15 121/71(91) NSR 0 (11) 10(A) , No pain 9:40:37 67 23 96 17.9 136/81(111) NSR 0 (11) 9(A) , No pain 9:44:52 64 17 97 17.9 120/63(99) NSR 0 (11) 9(A) , No pain 9:48:59 66 26 97 17.2 120/62(91) NSR 0 (11) 9(A) , No pain 9:53:05 65 25 96 18 128/65(96) NSR 0 (11) 9(A) , No pain 9:57:09 69 17 95 12.7 140/80(118) NSR 0 (11) 10(A) , No pain Medications Time Medication Route Dose Verified Delivered Reason N otes Effectiveness by by 9:04:34 0.9% NaCl I.V. 100 ml/hr Reggie Witt used for Debby Louise nursery worker 9:04:42 Oxygen etCO2 4 Reggie Witt used for Nasal l/min-high Debby Louise nursery worker cannula flow 9:04:48 Lidocaine 2% added 20ml vial Reggie Paredes for local to Debby Guardado MD anesthetic field 9:04:53 Heparin Flush added 2 bags Reggie Reggie used for Bag to Debby Guardado MD procedure (1000units/500ml field NS) 9:36:54 Versed I.V. 1 mg Reggie Witt for sedation Debby Louise RN 9:37:03 Fentanyl I.V. 50 mcg Reggie Witt for sedation Debby Louise RN 9:39:04 Radial Cocktail added 1 syringe Reggie Paredes used for (Verapomil to Debby Guardado MD procedure 2mg/Nitro field 400mcg/Heparin 1500units) 9:41:23 Versed I.V. 1 mg Reggie Witt for sedation Debby Louise RN 9:46:21 Heparin Bolus I.V. 4000 units Reggie Witt for v erified Debby Louise RN anticoagulation with dr guardado 9:47:23 Versed I.V. 0.5 mg Reggie Witt for sedation Debby Louise RN 9:57:29 Plavix P.O. 75 mg Reggie Witt for Debby Louise RN antiplatelet therapy Procedure Log Time Note 9:03:39 Eduar Louise RN sent for patient. Start room use. 9:03:40 Time tracking: Regular hours (M-F 7:00 - 5:00) 9:03:44 Plan of Care:Hemodynamics will remain stable., Cardiac rhythm will remain stable., Comfort level will be maintained., Respiratory function will remain adequate., Patient/ family verbilizes understanding of procedure., Procedure tolerated without complication., Recovers from procedure without complications.. 9:03:46 Signed procedure consent form obtained from patient. 9:04:34 0.9% NaCl 100 ml/hr I.V. was administered by Eduar Louise RN; used for procedure; 9:04:42 Oxygen 4 l/min-high flow etCO2 Nasal cannula was administered by Eduar Louise RN; used for procedure; 9:04:48 Lidocaine 2% 20ml vial added to field was administered by Reggie Guardado MD; for local anesthetic; 9:04:53 Heparin Flush Bag (1000units/500ml NS) 2 bags added to field was administered by Reggie Guardado MD; used for procedure; 9:18:49 Lab Result : BUN 15 mg/dl 9:18:49 Lab Result : Hemoglobin 16.4 g/dl 9:18:49 Lab Result : Creatinine 1.2 mg/dl 9:18:49 Lab Result : Hematocrit 48 % 9:20:59 Patient received from ICU to CCL 1 Alert and oriented. Tansferred to table in Supine position. 9:21:00 Warm blankets applied, and hilary hugger turned on for patient comfort. 9:21:00 Correct patient and procedure confirmed by team. 9:21:01 ECG and BP/O2 sat monitors applied to patient. 9:26:50 Vital chart was started 9:33:21 H&P Date Dictated: 06/27/2018 Within 30 days and on chart.. 9:33:22 Pre-procedure instructions explained to patient. 9:33:23 Pre-op teaching completed and patient verbalized understanding. 9:33:30 Family in waiting room. 9:33:31 Patient NPO since Midnight. 9:33:36 Patient allergic to No known allergies 9:33:38 Is the patient allergic to Iodine/contrast media? No. 9:33:39 Is patient on blood thinner?Yes 9:33:47 ACC The patient was administered the following blood thiners within the last 24 hours: ACCPlavix, Eliquis 9:33:50 Patient diabetic? No. 9:33:52 Previous problem with sedation/anesthesia? No ? 9:33:55 Snore? No 9:33:56 Sleep apnea? No 9:33:57 Deviated septum? No 9:33:57 Opens mouth fully? Yes 9:33:58 Sticks out tongue? Yes 9:34:00 Airway obstruction? No ? 9:34:24 Dentures? Yes out 9:35:31 Patient pain scale 0/10 ?. 9:35:40 IV patent on arrival in Left upper arm with 0.9% NaCl at O. 9:35:42 Lab results completed and on chart. 9:35:45 Right Radial & Right Groin area was prepped with chlora-prep and draped in sterile fashion 9:35:46 Alarms reviewed by R. N. 9:35:46 Sharps counted by scrub and verified by R.N. 9:35:49 Use device set Radial Dx or PCI 9:35:50 ACIST Syringe (38853) opened to sterile field. 9:35:51 Medline Cath Pack ([id number]) opened to sterile field. 9:35:51 Bag Decanter (2002) opened to sterile field. 9:35:52 ACIST Hand Control (49184) opened to sterile field. 9:35:52 ACIST Manifold (99451) opened to sterile field. 9:35:53 Tegaderm 4 x 4 (1626W) opened to sterile field. 9:35:53 MBrace Wrist Support ([id number]) opened to sterile field. 9:35:55 DIAGNOSTIC WIRE .035 260cm J wire (293404) opened to sterile field. 9:36:00 Baseline sample Acquired. 9:36:15 Rhythm: sinus rhythm 9:36:21 Full Disclosure recording started 9:36:25 Physician arrived 9:36:25 --------ALL STOP TIME OUT------ 9:36:25 Final Timeout: patient, procedure, and site verified with staff and physician. All members of the team are in agreement. 9:36:27 Right Radial & Right Groin site verified by team. 9:36:31 Physical assessment completed. ASA score P 2 - A patient with mild systemic disease as per Reggie Guardado MD. 9:36:34 Sedation plan: IV Moderate Sedation Medication:Versed, Fentanyl 9:36:39 Zero performed for pressure channel P1 9:36:54 Versed 1 mg I.V. was administered by Eduar Louise RN; for sedation; 9:37:03 Fentanyl 50 mcg I.V. was administered by Eduar Louise RN; for sedation; 9:39:04 Radial Cocktail (Verapomil 2mg/Nitro 400mcg/Heparin 1500units) 1 syringe added to field was administered by Reggie Guardado MD; used for procedure; 9:39:44 Procedure started. 9:39:47 Local anesthetic to right radial artery with Lidocaine 2% by Reggie Guardado MD.INITIAL ACCESS ONLY 9:39:57 A 6 Fr Short sheath was inserted into the Right Radial artery 9:40:19 SHEATH 6FR Slender ([id number]) opened to sterile field. 9:40:53 A DIAGNOSTIC Shiro 110cm 5 Fr catheter (329100) was advanced over the wire and used for Procedure. 9:41:23 Versed 1 mg I.V. was administered by Eduar Louise RN; for sedation; 9:42:08 GLIDE WIRE Super Stiff Angled 260cm (TA6750) opened to sterile field. 9:42:18 glide wire wire advanced. 9:43:14 Wire removed. 9:43:16 LV gram done using ZACARIAS 9:43:21 Injector settings: Ml/sec: 5, Volume: 15, 9:43:26 EF : 50 % 9:43:29 LCA angiography performed. 9:44:10 Archbold [place] IVUS Catheter (17152W) opened to sterile field. 9:44:18 INFLATOR Merit BasixCompak (QZ6568) opened to sterile field. 9:44:39 CHOICE Floppy Straight 300cm guide wire ([id number]) opened to sterile field. 9:44:46 RCA angiography performed. 9:45:59 Catheter removed. 9:46:08 GUIDE 6FR XBLAD 3.5 catheter ([id number]) opened to sterile field. 9:46:17 6 Fr xblad 3.5 guide catheter was inserted over the wire 9:46:21 Heparin Bolus 4000 units I.V. was administered by Eduar Louise RN; for anticoagulation; verified with dr guardado 9:47:06 Wire advanced across lesion. 9:47:09 IVUS catheter advanced over wire. 9:47:23 Versed 0.5 mg I.V. was administered by Eduar Louise RN; for sedation; 9:48:22 IVUS pass to LAD lesion performed. 9:48:23 IVUS catheter removed over wire. 9:50:26 Place stent Inflation Number: 1 A DANIELLA RX 3.0 x 30 stent ([id number]) was prepped and advanced across the Prox LAD. The stent was deployed at 13 VALERIE for 0:10 (min:sec). 9:51:16 Stent catheter was removed intact over wire. 9:51:22 Wire redirected to CX OM. 9:51:39 Wire advanced across lesion. 9:51:43 IVUS catheter advanced over wire. 9:51:46 IVUS pass to OM lesion performed. 9:54:03 Place stent Inflation Number: 1 A DANIELLA RX 2.5 x 22 stent ([id number]) was prepped and advanced across the 1st Ob Lakia. The stent was deployed at 13 VALERIE for 0:10 (min:sec). 9:54:09 Stent catheter was removed intact over wire. 9:54:10 Wire removed. 9:54:11 Guide catheter removed. 9:57:29 Plavix 75 mg P.O. was administered by Eduar Louise RN; for antiplatelet therapy; 9:57:59 TR BAND Standard ([id number]) opened to sterile field. 9:58:06 Sheath removed intact; hemostasis achieved with Mechanical Compression to the Right Radial artery. 9:58:07 Procedure ended.(Physican Out) 9:58:43 Fluoroscopy time 05.60 minutes. 9:58:47 Fluoroscopy dose: 627 mGy 9:58:47 Flurop Dose total: 627 9:58:51 Contrast amount:Isovue 300 79ml. 9:58:52 Sharps counted by scrub and verified by R.N. 9:58:54 TR band inflated with 10cc of air. 9:58:55 Insertion/operative site no bleeding no hematoma. 9:58:56 Post Procedure Pulses reassessed and unchanged 9:58:58 Post-procedure physical assessment completed. ASA score P 2 - A patient with mild systemic disease as per Reggie Guardado MD. 9:59:01 Post procedure rhythm: unchanged. 9:59:04 Estimated blood loss: 10 ml 9:59:06 Post procedure instruction explained to patient.Patient verbalizes understanding. 9:59:06 Patient needs reinforcement of post procedure teaching. 9:59:39 Procedure type changed to Cath procedure, Diagnostic procedure, LHC, LHC w/Coronaries, FFR/IVUS, Intra-Coronary IVUS Initial, Intra-Coronary IVUS Additional, Sedation Charges, Moderate Sedation up to 15 minutes, PCI procedure, Coronary Stent, Coronary Stent Initial x2 10:00:16 Procedure and supply charges have been captured, reviewed, submitted and are correct. 10:00:19 Procedure Complication : No complications 10:00:21 Vital chart was stopped 10:00:21 See physician's report for complete and final results. 10:00:23 Report given to ICU. 10:00:25 Patient transfered to ICU with Stretcher. 10:00:26 Procedure ended. 10:00:26 Full Disclosure recording stopped 10:00:31 End room use (Document Last) Intervention Summary Intervention Notes Time ActionType Lesion and Equipment Used Action# Pressure Duration Attributes 9:50:[address] stent Prox LAD DANIELLA RX 3.0 x 1 13 00:10 30 stent ([id number]) 9:54:03 Place stent 1st Ob Lakia DANIELLA RX 2.5 x 1 13 00:10 22 stent ([id number]) Device Usage Item Name Manufacture Quantity Catalog Hospital Part Current [facility] Lot# / Number Charge Number Stock Stock Serial# Code ACIST Syringe Acist 1 16331 959826 171738 689292 20 (16262) Medical Systems Inc Medline Cath Medline 1 [id number] 419297 64399 844253 5 Pack ([id number]) Bag Decanter Microtek 1 2001S 668615 64211 199582 5 (2001S) Medical Inc. ACIST Hand Acist 1 57375 067368 357023 831334 5 Control Medical (41065) Systems Inc ACIST Manifold Acist 1 32418 930400 504662 383472 5 (49374) Medical Systems Inc Tegaderm 4 x 4 3M 1 1626W 323213 658265 811040 5 (1626W) MBrace Wrist Advanced 1 140-0250-00 363705 21238 805866 5 Support Vascular (170543954) Dynamics DIAGNOSTIC [facility] [place] 1 869764 524296 016897 866326 30 WIRE .035 260cm J wire (475380) SHEATH 6FR Terumo 1 [id number] 324022 438592 202461 40 Slender ([id number]) DIAGNOSTIC Terumo 1 40-5013 571114 062466 955978 5 Shiro 110cm 5 Fr catheter (280615) GLIDE WIRE Terumo 1 AW2453 365879 816759 356451 5 Super Stiff Angled 260cm (PO1830) Archbold Archbold 1 55731U 291565 480322 899881 8 [place] IVUS Catheter (91786T) INFLATOR Merit Merit 1 BP7175 028245 975383 700066 15 [facility] (EV7158) CHOICE Floppy [place] 1 [id number] 201856 450451 018442 5 Straight 300cm Scientific guide wire (24189611) GUIDE 6FR Cardinal 1 [id number] 213057 376117 239650 10 XBLAD 3.5 Health catheter (24254438) DANIELLA RX 3.0 x Medtronic 1 [id number] 429419 5825350 331868 5 [id number] 30 stent ([id number]) DANIELLA RX 2.5 x Medtronic 1 [id number] 715654 2259418 079854 5 [id number] 22 stent ([id number]) TR BAND Terumo 1 [id number] 799137 859113 257942 40 Standard ([id number]) Signature Audit [place] Stage Time Signature Unsigned Intra-Procedure 06/28/2018 Hung Flores 10:04:04 AM RT(R) Signatures Monitor : Hung Flores RT Signature : Date : Time : [place] [place] [address]
--- NOTE | ~2018-06-25 | MORECARE ---
CASE MANAGEMENT DISCHARGE SUMMARY PATIENT: SARAH CHURCH UNIT: [id number] ADM DATE: 06/25/18 AGE: 72 : [birth year] SEX: M ROOM/BED: D.2310 AUTHOR: KENZIE FAIR PHYSICIAN: REFERRING PHYSICIAN: LUIS VARGAS MD DATE OF SERVICE: 06/28/18 Discharge Plan Patient Name: SARAH CHURCH Facility: [facility]:[place] : 1945 Planned Disposition: Home Anticipated Discharge Date: Discharge Date: Expected LOS: Initial Reviewer: [email or web address] Initial Review Date: 06/25/2018 Generated: 06/28/18 3:51 pm Patient Name: SARAH CHURCH Page 46356 at 1451 All edits/amendments must be made on the electronic document DICTATION DATE: 06/28/181449 PSYCHOLOGY ASSISTANT: TAMELA 06/28/18 145 RPT#: [id number] DC DATE: STATUS: ADM IN [facility] [address] [place] [address] END OF REPORT
[~2018-06-25 18:43] MED LIST changes: -ASPIRIN81 MG PO; -BETAPACE 80 MG80 MG PO; -COMBIVENT RESPIM4 GM INH; -KEFLEX500 MG PO; -MULTI-DAY VITAM1 TAB PO; -MYAMBUTOL400 MG PO; -PLAVIX75 MG PO; -PRAVACHOL20 MG PO; -RIFADIN300 MG PO; -THIAMINE HCL50 MG PO; -ZITHROMAX250 MG PO
[2018-06-25] MEDS ORDERED: MYAMBUTOL400 MG PO (19:31)
[2018-06-25] MEDS ORDERED: ZITHROMAX250 MG PO (19:31)
[2018-06-25] MEDS ORDERED: RIFADIN300 MG PO (19:31)
[2018-06-25 19:35] LABS: BASOPHILS 0.5 % (0-2); EOSINOPHILS 6.2 % (0-7); HEMOGLOBIN 14.2 g/dL (13.5-17.5); IMMATURE GRANULOCYTES 0.2 % (0-5); LYMPHOCYTES 27.9 % (15-50); MCH 35.1 pg (26.0-34.0); MCHC 34.6 g/dL (31.0-37.0); MCV 101.2 fL (80.0-100.0); MEAN PLATELET VOLUME 10.3 fL (7.4-10.4); MONOCYTES 14.7 % (2-11); NEUTROPHILS 50.5 % (40-80); PLATELET COUNT 110 10x3/uL (130-400); RBC 4.05 10x6/uL (4.20-6.10); RDW 12.8 % (11.5-14.5); WBC 5.9 10x3/uL (4.8-10.8)
[2018-06-25 19:50] LABS: APPEARANCE CLEAR (CLEAR); BILIRUBIN NEGATIVE (NEGATIVE); COLOR YELLOW (YELLOW); GLUCOSE NEGATIVE (NEGATIVE); KETONE NEGATIVE (NEGATIVE); NITRITE NEGATIVE (NEGATIVE); PROTEIN NEGATIVE (NEGATIVE); UROBILINOGEN NORMAL (NORMAL)
[2018-06-25 20:00] LABS: ALBUMIN 3.3 g/dL (3.4-5.0); ALKALINE PHOSPHATASE 108 U/L (46-116); ALT (SGPT) 27 U/L (10-68); CALC OSMOLALITY 263 mosm/kg (275-300); CALCIUM 8.2 mg/dL (8.5-10.1); CARBON DIOXIDE 23.9 mmol/L (21.0-32.0); CHLORIDE - SERUM 98 mmol/L (98-107); CREATININE - SERUM 0.9 mg/dL (0.6-1.3); GLUCOSE 83 mg/dL (74-106); LIPASE 369 U/L (73-393); POTASSIUM - SERUM 3.9 mmol/L (3.5-5.1); PROTEIN - SERUM 7.6 g/dL (6.4-8.2); SODIUM 133 mmol/L (136-145); UREA NITROGEN 10 mg/dL (7-18); eGFR NON AFRICAN AMERICAN 89 mL/min (90-120)
[2018-06-25 20:40] VITALS: BP 141/81
[2018-06-25 21:43] VITALS: BP 147/93
[2018-06-25 21:46] LABS: APTT 31.6 SECONDS (22.8-39.4); INR 1.13 (0.85-1.17)
[2018-06-26 01:23] VITALS: BP 164/86; BMI 20.8; BMI 22.0; BMI 22.6
[2018-06-26 07:53] VITALS: BP 115/61
[2018-06-26 11:06] LABS: CREATINE KINASE 31 UL (21-232); TROPONIN-I < 0.017 ng/mL (0.000-0.060)
[2018-06-26 11:43] LABS: T4 THYROXIN - FREE 0.84 ng/dL (0.76-1.46); THYROID STIMULATING HORMONE 1.81 uIU/mL (0.36-3.74)
[2018-06-26 12:02] VITALS: BP 116/67
[2018-06-26 15:35] VITALS: BP 120/69
[2018-06-26 16:34] LABS: CKMB 0.7 U/L (0.0-3.6); CREATINE KINASE 29 UL (21-232)
[2018-06-26 16:43] LABS: TROPONIN-I < 0.017 ng/mL (0.000-0.060)
[2018-06-26 20:00] VITALS: BP 132/64
[2018-06-26 23:00] LABS: CKMB 0.7 U/L (0.0-3.6); CREATINE KINASE 27 UL (21-232)
[2018-06-26 23:03] LABS: TROPONIN-I < 0.017 ng/mL (0.000-0.060)
[2018-06-27] VITALS (16 sets, daily range): BP systolic 71–193; BP diastolic 51–110; BMI 20.6
[2018-06-27 06:29] LABS: ALBUMIN 2.7 g/dL (3.4-5.0); ALKALINE PHOSPHATASE 83 U/L (46-116); ALT (SGPT) 21 U/L (10-68); BILIRUBIN - TOTAL 0.78 mg/dL (0.2-1.3); CALC OSMOLALITY 273 mosm/kg (275-300); CALCIUM 7.6 mg/dL (8.5-10.1); CARBON DIOXIDE 24.3 mmol/L (21.0-32.0); CHLORIDE - SERUM 106 mmol/L (98-107); CREATININE - SERUM 0.9 mg/dL (0.6-1.3); GLUCOSE 93 mg/dL (74-106); POTASSIUM - SERUM 4.2 mmol/L (3.5-5.1); PROTEIN - SERUM 6.4 g/dL (6.4-8.2); SODIUM 137 mmol/L (136-145); UREA NITROGEN 12 mg/dL (7-18); eGFR NON AFRICAN AMERICAN 89 mL/min (90-120)
[2018-06-27 06:34] LABS: BASOPHILS 0.7 % (0-2); EOSINOPHILS 4.2 % (0-7); HEMOGLOBIN 12.9 g/dL (13.5-17.5); IMMATURE GRANULOCYTES 0.2 % (0-5); LYMPHOCYTES 28.6 % (15-50); MCH 34.8 pg (26.0-34.0); MCHC 33.9 g/dL (31.0-37.0); MCV 102.4 fL (80.0-100.0); MEAN PLATELET VOLUME 11.1 fL (7.4-10.4); MONOCYTES 10.8 % (2-11); NEUTROPHILS 55.5 % (40-80); PLATELET COUNT 109 10x3/uL (130-400); RBC 3.71 10x6/uL (4.20-6.10); RDW 13.3 % (11.5-14.5); WBC 4.6 10x3/uL (4.8-10.8)
[2018-06-27 10:39] LABS: ANION GAP 15.3 mmol/L (8-16); CALCIUM 8.3 mg/dL (8.5-10.1); CARBON DIOXIDE 19.8 mmol/L (21.0-32.0); CREATININE - SERUM 1.2 mg/dL (0.6-1.3); POTASSIUM - SERUM 5.1 mmol/L (3.5-5.1)
[2018-06-28] VITALS (21 sets, daily range): BP systolic 90–139; BP diastolic 43–105; Ht 167.6 cm; Wt 57.5 kg
[2018-06-28 04:25] LABS: BASOPHILS 0.1 % (0-2); EOSINOPHILS 0.1 % (0-7); HEMATOCRIT 39.8 % (42.0-54.0); HEMOGLOBIN 13.8 g/dL (13.5-17.5); IMMATURE GRANULOCYTES 0.3 % (0-5); MCH 35.5 pg (26.0-34.0); MCHC 34.7 g/dL (31.0-37.0); MCV 102.3 fL (80.0-100.0); MEAN PLATELET VOLUME 10.7 fL (7.4-10.4); MONOCYTES 9.1 % (2-11); NEUTROPHILS 76.4 % (40-80); PLATELET COUNT 124 10x3/uL (130-400); RBC 3.89 10x6/uL (4.20-6.10); RDW 13.2 % (11.5-14.5)
[2018-06-28 04:55] LABS: ALBUMIN 2.8 g/dL (3.4-5.0); BILIRUBIN - TOTAL 0.58 mg/dL (0.2-1.3); CALCIUM 7.9 mg/dL (8.5-10.1); CREATININE - SERUM 1.5 mg/dL (0.6-1.3); MAGNESIUM - SERUM 1.8 mg/dL (1.8-2.4); PHOSPHOROUS 4.1 mg/dL (2.5-4.9); PROTEIN - SERUM 6.1 g/dL (6.4-8.2)
[2018-06-28 05:05] LABS: ANION GAP 13.5 mmol/L (8-16); CARBON DIOXIDE 25.5 mmol/L (21.0-32.0); TROPONIN-I 1.346 ng/mL (0.000-0.060)
[2018-06-29] VITALS (24 sets, daily range): BP systolic 77–149; BP diastolic 50–98
[2018-06-29 05:40] LABS: BASOPHILS 0.1 % (0-2); EOSINOPHILS 0 % (0-7); HEMATOCRIT 40.1 % (42.0-54.0); IMMATURE GRANULOCYTES 0.1 % (0-5); LYMPHOCYTES 15.7 % (15-50); MCH 35.2 pg (26.0-34.0); MCHC 34.9 g/dL (31.0-37.0); MCV 100.8 fL (80.0-100.0); MONOCYTES 9.8 % (2-11); NEUTROPHILS 74.3 % (40-80); PLATELET COUNT 128 10x3/uL (130-400); RBC 3.98 10x6/uL (4.20-6.10); RDW 13.2 % (11.5-14.5); WBC 8.4 10x3/uL (4.8-10.8)
[2018-06-29 06:02] LABS: ALBUMIN 2.7 g/dL (3.4-5.0); ANION GAP 13.2 mmol/L (8-16); BILIRUBIN - TOTAL 0.52 mg/dL (0.2-1.3); CARBON DIOXIDE 27.4 mmol/L (21.0-32.0); CREATININE - SERUM 1.4 mg/dL (0.6-1.3); POTASSIUM - SERUM 3.6 mmol/L (3.5-5.1); PROTEIN - SERUM 6.8 g/dL (6.4-8.2)
[2018-06-30] VITALS (22 sets, daily range): BP systolic 83–160; BP diastolic 60–97
[2018-06-30 05:09] LABS: BASOPHILS 0 % (0-2); EOSINOPHILS 0 % (0-7); HEMATOCRIT 35.5 % (42.0-54.0); HEMOGLOBIN 12.1 g/dL (13.5-17.5); IMMATURE GRANULOCYTES 0.2 % (0-5); LYMPHOCYTES 17.4 % (15-50); MCH 34.6 pg (26.0-34.0); MCHC 34.1 g/dL (31.0-37.0); MCV 101.4 fL (80.0-100.0); MEAN PLATELET VOLUME 10.3 fL (7.4-10.4); MONOCYTES 14.3 % (2-11); NEUTROPHILS 68.1 % (40-80); RDW 13.1 % (11.5-14.5)
[2018-06-30 05:11] LABS: PLATELET COUNT 102 10x3/uL (130-400); WBC 5.8 10x3/uL (4.8-10.8)
[2018-06-30 05:49] LABS: ALBUMIN 2.2 g/dL (3.4-5.0); ALKALINE PHOSPHATASE 85 U/L (46-116); CALC OSMOLALITY 287 mosm/kg (275-300); CARBON DIOXIDE 25.3 mmol/L (21.0-32.0); CHLORIDE - SERUM 108 mmol/L (98-107); GLUCOSE 125 mg/dL (74-106); POTASSIUM - SERUM 3.4 mmol/L (3.5-5.1); PROTEIN - SERUM 5.5 g/dL (6.4-8.2); SODIUM 142 mmol/L (136-145); UREA NITROGEN 25 mg/dL (7-18)
[2018-06-30 05:51] LABS: ALT (SGPT) 25 U/L (10-68); CALCIUM 6.9 mg/dL (8.5-10.1); eGFR NON AFRICAN AMERICAN 78 mL/min (90-120)
[2018-07-01 03:00] VITALS: BP 152/98
[2018-07-01 04:36] LABS: BASOPHILS 0.4 % (0-2); EOSINOPHILS 1.2 % (0-7); HEMATOCRIT 38.9 % (42.0-54.0); HEMOGLOBIN 13.4 g/dL (13.5-17.5); LYMPHOCYTES 24.1 % (15-50); MCHC 34.4 g/dL (31.0-37.0); MCV 101.6 fL (80.0-100.0); MEAN PLATELET VOLUME 10.3 fL (7.4-10.4); MONOCYTES 15.4 % (2-11); NEUTROPHILS 58.9 % (40-80); PLATELET COUNT 91 10x3/uL (130-400); RBC 3.83 10x6/uL (4.20-6.10); WBC 5.1 10x3/uL (4.8-10.8)
[2018-07-01 04:45] LABS: ALBUMIN 2.6 g/dL (3.4-5.0); ALKALINE PHOSPHATASE 119 U/L (46-116); CALCIUM 7.9 mg/dL (8.5-10.1); CHLORIDE - SERUM 106 mmol/L (98-107); CREATININE - SERUM 0.9 mg/dL (0.6-1.3); POTASSIUM - SERUM 3.4 mmol/L (3.5-5.1); PROTEIN - SERUM 6.2 g/dL (6.4-8.2); SODIUM 141 mmol/L (136-145); UREA NITROGEN 19 mg/dL (7-18); eGFR NON AFRICAN AMERICAN 89 mL/min (90-120)
[2018-07-01 04:55] LABS: ALT (SGPT) 35 U/L (10-68); CALC OSMOLALITY 281 mosm/kg (275-300); GLUCOSE 72 mg/dL (74-106)
[2018-07-01 05:12] LABS: PLATELET ESTIMATE DECREASED
[2018-07-01 08:00] VITALS: BP 114/76
[2018-07-01 11:00] VITALS: BP 116/93
[2018-07-01 14:24] VITALS: BP 90/61
[2018-07-01 19:00] VITALS: BP 100/71
[2018-07-01 23:00] VITALS: BP 105/64
[2018-07-02 03:00] VITALS: BP 95/58
[2018-07-02 07:00] VITALS: BP 106/64
[2018-07-02 11:00] VITALS: BP 144/88
[2018-07-02 15:00] VITALS: BP 98/64
[2018-07-02 19:00] VITALS: BP 107/68
[2018-07-02 23:00] VITALS: BP 112/76
[2018-07-03 03:00] VITALS: BP 105/61
[2018-07-03] MEDS ORDERED: KEFLEX500 MG PO (12:16)
[2018-07-03] MEDS ORDERED: PLAVIX75 MG PO (12:19)
[2018-07-03] MEDS ORDERED: THIAMINE HCL50 MG PO (12:20)
[2018-07-03] MEDS ORDERED: PRAVACHOL20 MG PO (12:20)
[2018-07-03] MEDS ORDERED: MULTI-DAY VITAM1 TAB PO (12:20)
[2018-07-03] MEDS ORDERED: ASPIRIN81 MG PO (12:20)
[2018-07-03] MEDS ORDERED: BETAPACE 80 MG80 MG PO (12:20)
[2018-07-03] MEDS ORDERED: COMBIVENT RESPIM4 GM INH (12:21)
== END 2018-07-03 13:40 | disposition home or self-care (01) | DRG 246 ==
LOC: D.ER 18:43 → D.M2 22:43 → D.ICU 22:43 → D.MS 22:43 → D.M2 22:47 → D.ICU 06-27 08:48
PROVIDERS: Emergency Medicine; Internal Medicine Cardiovascular Disease; Internal Medicine Interventional Cardiology; Internal Medicine Nephrology; Internal Medicine Pulmonary Disease
PROC: 05HY33Z Insertion of Infusion Device into Upper Vein, Percutaneous Approach (ICD-10-PCS; principal; 2018-06-27)
PROC: B241ZZ3 Ultrasonography of Multiple Coronary Arteries, Intravascular (ICD-10-PCS; 2018-06-28)
PROC: B2111ZZ Fluoroscopy of Multiple Coronary Arteries using Low Osmolar Contrast (ICD-10-PCS; 2018-06-28)
PROC: B2151ZZ Fluoroscopy of Left Heart using Low Osmolar Contrast (ICD-10-PCS; 2018-06-28)
PROC: 4A023N7 Measurement of Cardiac Sampling and Pressure, Left Heart, Percutaneous Approach (ICD-10-PCS; 2018-06-28)
PROC: 027135Z Dilation of Coronary Artery, Two Arteries with Two Drug-eluting Intraluminal Devices, Percutaneous Approach (ICD-10-PCS; 2018-06-28 09:00)
PROC: 027035Z Dilation of Coronary Artery, One Artery with Two Drug-eluting Intraluminal Devices, Percutaneous Approach (ICD-10-PCS; 2018-06-29)
DX: I48.91 Unspecified atrial fibrillation (principal); J96.01 Acute respiratory failure with hypoxia; J96.02 Acute respiratory failure with hypercapnia; E87.1 Hypo-osmolality and hyponatremia; A31.0 Pulmonary mycobacterial infection; J81.1 Chronic pulmonary edema; F10.10 Alcohol abuse, uncomplicated; R91.8 Other nonspecific abnormal finding of lung field; F17.200 Nicotine dependence, unspecified, uncomplicated; R14.0 Abdominal distension (gaseous); J43.9 Emphysema, unspecified; D47.3 Essential (hemorrhagic) thrombocythemia; I25.119 Atherosclerotic heart disease of native coronary artery with unspecified angina pectoris; J30.9 Allergic rhinitis, unspecified; Z77.090 Contact with and (suspected) exposure to asbestos; I95.9 Hypotension, unspecified

== ENCOUNTER → 2018-08-17 17:33 | Outpatient (CLI) | payer MEDICARE ==
[2018-06-28 12:49] VITALS: BMI 20.6
[~2018-08-17 17:33] MED LIST changes: +ASPIRIN81 MG PO; +BETAPACE 80 MG80 MG PO; +COMBIVENT RESPIM4 GM INH; +KEFLEX500 MG PO; +MULTI-DAY VITAM1 TAB PO; +MYAMBUTOL400 MG PO; +PLAVIX75 MG PO; +PRAVACHOL20 MG PO; +RIFADIN300 MG PO; +THIAMINE HCL50 MG PO; +ZITHROMAX250 MG PO
[2018-08-17 19:44] LABS: BASOPHILS 0.3 % (0-2); EOSINOPHILS 11.4 % (0-7); HEMOGLOBIN 14.3 g/dL (13.5-17.5); IMMATURE GRANULOCYTES 0.2 % (0-5); LYMPHOCYTES 29.5 % (15-50); MCH 34.1 pg (26.0-34.0); MCHC 34.9 g/dL (31.0-37.0); MCV 97.9 fL (80.0-100.0); MEAN PLATELET VOLUME 11.6 fL (7.4-10.4); MONOCYTES 16.6 % (2-11); RBC 4.19 10x6/uL (4.20-6.10); RDW 12.2 % (11.5-14.5); WBC 6.1 10x3/uL (4.8-10.8)
[2018-08-17 19:57] LABS: PLATELET COUNT 154 10x3/uL (130-400)
[2018-08-17 20:09] LABS: ALBUMIN 3.4 g/dL (3.4-5.0); ALKALINE PHOSPHATASE 171 U/L (46-116); ALT (SGPT) 20 U/L (10-68); BILIRUBIN - TOTAL 0.77 mg/dL (0.2-1.3); CALC OSMOLALITY 276 mosm/kg (275-300); CALCIUM 8.4 mg/dL (8.5-10.1); CARBON DIOXIDE 26.7 mmol/L (21.0-32.0); CHLORIDE - SERUM 104 mmol/L (98-107); CREATININE - SERUM 0.8 mg/dL (0.6-1.3); POTASSIUM - SERUM 3.6 mmol/L (3.5-5.1); PROTEIN - SERUM 7.3 g/dL (6.4-8.2); SODIUM 141 mmol/L (136-145); UREA NITROGEN 6 mg/dL (7-18); eGFR NON AFRICAN AMERICAN > 90 mL/min (90-120)
[2018-08-17 20:11] LABS: GLUCOSE 56 mg/dL (74-106)
== END | disposition home or self-care (01) ==
LOC: D.LABREF 17:33
PROVIDERS: Student in an Organized Health Care Education/Training Program
DX: Z51.81 Encounter for therapeutic drug level monitoring (principal); Z79.2 Long term (current) use of antibiotics

== ENCOUNTER → 2018-11-22 06:49 | Outpatient (CLI) | payer MEDICARE ==
[2018-06-28 12:49] VITALS: BMI 20.6
== END | disposition home or self-care (01) ==
LOC: D.RT 06:49
PROVIDERS: ATTEND Internal Medicine Pulmonary Disease
DX: J44.9 Chronic obstructive pulmonary disease, unspecified (principal)

== ENCOUNTER → 2019-03-20 19:38 | Outpatient (CLI) | payer MEDICARE ==
[2018-06-28 12:49] VITALS: BMI 20.6
== END | disposition home or self-care (01) ==
LOC: D.LABREF 19:38
PROVIDERS: ATTEND Internal Medicine Pulmonary Disease
DX: A31.0 Pulmonary mycobacterial infection (principal)

== ENCOUNTER → 2019-04-19 17:58 | Outpatient (CLI) | payer MEDICARE ==
[2018-06-28 12:49] VITALS: BMI 20.6
[~2019-04-19 17:58] MED LIST changes: +CLEOCIN HCL300 MG PO
[2019-04-19 18:24] LABS: BASOPHILS 0.5 % (0-2); EOSINOPHILS 9.7 % (0-7); HEMOGLOBIN 15.8 g/dL (13.5-17.5); IMMATURE GRANULOCYTES 0.2 % (0-5); LYMPHOCYTES 36.9 % (15-50); MCHC 35.1 g/dL (31.0-37.0); MCV 93.9 fL (80.0-100.0); MEAN PLATELET VOLUME 10.6 fL (7.4-10.4); NEUTROPHILS 40.7 % (40-80); RBC 4.79 10x6/uL (4.20-6.10); RDW 12.8 % (11.5-14.5)
[2019-04-19 18:31] LABS: PLATELET COUNT 115 10x3/uL (130-400)
[2019-04-19 18:40] LABS: ALBUMIN 3.7 g/dL (3.4-5.0); ALKALINE PHOSPHATASE 138 U/L (46-116); ALT (SGPT) 17 U/L (10-68); CALC OSMOLALITY 275 mosm/kg (275-300); CALCIUM 8.7 mg/dL (8.5-10.1); CARBON DIOXIDE 26.1 mmol/L (21.0-32.0); CHLORIDE - SERUM 103 mmol/L (98-107); GLUCOSE 81 mg/dL (74-106); POTASSIUM - SERUM 4.4 mmol/L (3.5-5.1); PROTEIN - SERUM 7.4 g/dL (6.4-8.2); SODIUM 139 mmol/L (136-145); UREA NITROGEN 10 mg/dL (7-18); eGFR NON AFRICAN AMERICAN 78 mL/min (90-120)
== END | disposition home or self-care (01) ==
LOC: D.LABREF 17:58
PROVIDERS: ATTEND Internal Medicine Pulmonary Disease
DX: A31.0 Pulmonary mycobacterial infection (principal)

== ENCOUNTER 2019-05-08 10:47 | Emergency (ER) | payer MEDICARE ==
[~2019-05-08] VITALS: Ht 167.6 cm; Wt 61.4 kg
[~2019-05-08 10:47] MED LIST changes: -CLEOCIN HCL300 MG PO
[2019-05-08 10:51] VITALS: Ht 167.6 cm; Wt 61.4 kg
[2019-05-08 11:30] VITALS: BP 132/86
[2019-05-08] MEDS ORDERED: CLEOCIN HCL300 MG PO (12:08)
== END 2019-05-08 14:00 | disposition home or self-care (01) ==
LOC: D.ER 10:47
DX: S51.832A Puncture wound without foreign body of left forearm, initial encounter (principal); W45.8XXA Other foreign body or object entering through skin, initial encounter; J44.9 Chronic obstructive pulmonary disease, unspecified; I10 Essential (primary) hypertension

== ENCOUNTER → 2019-07-13 14:28 | Outpatient (CLI) | payer MEDICARE ==
[2019-05-08 10:51] VITALS: BMI 21.8
[~2019-07-13 14:28] MED LIST changes: +CLEOCIN HCL300 MG PO
== END | disposition home or self-care (01) ==
LOC: D.RAD 14:28
PROVIDERS: ATTEND Internal Medicine Pulmonary Disease
DX: A31.0 Pulmonary mycobacterial infection (principal)

== ENCOUNTER → 2019-10-31 08:43 | Outpatient (CLI) | payer MEDICARE ==
[2019-05-08 10:51] VITALS: BMI 21.8
[2019-10-31 10:25] LABS: BASOPHILS 0.2 % (0-2); EOSINOPHILS 7.5 % (0-7); HEMATOCRIT 41.3 % (42.0-54.0); IMMATURE GRANULOCYTES 0.2 % (0-5); LYMPHOCYTES 25.7 % (15-50); MCH 31.8 pg (26.0-34.0); MCHC 33.9 g/dL (31.0-37.0); MCV 93.9 fL (80.0-100.0); MEAN PLATELET VOLUME 10.6 fL (7.4-10.4); MONOCYTES 14.3 % (2-11); NEUTROPHILS 52.1 % (40-80); RDW 12.8 % (11.5-14.5); WBC 5.7 10x3/uL (4.8-10.8)
[2019-10-31 10:30] LABS: PLATELET COUNT 150 10x3/uL (130-400)
[2019-10-31 10:34] LABS: ALBUMIN 3.5 g/dL (3.4-5.0); ALKALINE PHOSPHATASE 220 U/L (30-120); ALT (SGPT) 14 U/L (10-68); BILIRUBIN - TOTAL 0.59 mg/dL (0.2-1.3); CALC OSMOLALITY 270 mosm/kg (275-300); CALCIUM 8.8 mg/dL (8.5-10.1); CARBON DIOXIDE 26.4 mmol/L (21.0-32.0); CHLORIDE - SERUM 101 mmol/L (98-107); CREATININE - SERUM 0.9 mg/dL (0.6-1.3); GLUCOSE 88 mg/dL (74-106); POTASSIUM - SERUM 3.8 mmol/L (3.5-5.1); PROTEIN - SERUM 7.8 g/dL (6.4-8.2); SODIUM 136 mmol/L (136-145); UREA NITROGEN 13 mg/dL (7-18); eGFR NON AFRICAN AMERICAN 88 mL/min (90-120)
== END | disposition home or self-care (01) ==
LOC: D.CT 08:43 → D.RT 09:30
PROVIDERS: ATTEND Internal Medicine Pulmonary Disease
DX: J44.9 Chronic obstructive pulmonary disease, unspecified (principal); J98.4 Other disorders of lung; A31.0 Pulmonary mycobacterial infection

== ENCOUNTER 2019-11-13 05:29 | Outpatient (CLI) | payer MEDICARE ==
[~2019-11-13] VITALS: Ht 167.6 cm; Wt 63.6 kg
[2019-11-13 06:11] LABS: CALC OSMOLALITY 274 mosm/kg (275-300); CALCIUM 8.5 mg/dL (8.5-10.1); CARBON DIOXIDE 26.7 mmol/L (21.0-32.0); CHLORIDE - SERUM 102 mmol/L (98-107); GLUCOSE 117 mg/dL (74-106); POTASSIUM - SERUM 3.8 mmol/L (3.5-5.1); SODIUM 137 mmol/L (136-145); UREA NITROGEN 13 mg/dL (7-18); eGFR NON AFRICAN AMERICAN 78 mL/min (90-120)
[2019-11-13 06:12] LABS: BASOPHILS 0.2 % (0-2); EOSINOPHILS 5.4 % (0-7); HEMATOCRIT 38.1 % (42.0-54.0); HEMOGLOBIN 12.9 g/dL (13.5-17.5); IMMATURE GRANULOCYTES 0.2 % (0-5); LYMPHOCYTES 28.2 % (15-50); MCHC 33.9 g/dL (31.0-37.0); MCV 94.5 fL (80.0-100.0); MEAN PLATELET VOLUME 10.6 fL (7.4-10.4); MONOCYTES 10.4 % (2-11); NEUTROPHILS 55.6 % (40-80); PLATELET COUNT 146 10x3/uL (130-400); RBC 4.03 10x6/uL (4.20-6.10); WBC 4.8 10x3/uL (4.8-10.8)
[2019-11-13 06:28] LABS: APTT 29.6 SECONDS (22.8-39.4); INR 1.1 (0.85-1.17); PROTIME 14.1 SECONDS (11.6-15.0)
[2019-11-13 06:31] VITALS: BP 146/74; Ht 167.6 cm; Wt 63.6 kg
[2019-11-13] MEDS ORDERED: COZAAR25 MG PO (06:57)
[2019-11-13] MEDS ORDERED: STIOLTO RESPIMAT4 GM INH (07:01)
--- NOTE | 2019-11-13 08:28 | NUR ---
0825-PROCEDURE CANCELED DUE TO TAKING ASA. IV D/C. 0830-PATIENT DRESSED AND DISCHARGE INSTRUCTIONS REVIEWED.
== END 2019-11-13 05:30 | disposition home or self-care (01) ==
LOC: D.LAB 05:29 → D.CT 08:00
PROVIDERS: General Practice; ATTEND Internal Medicine Pulmonary Disease
DX: R91.8 Other nonspecific abnormal finding of lung field (principal)

== ENCOUNTER → 2019-12-27 08:57 | Outpatient (CLI) | payer MEDICARE ==
[2019-11-13 06:31] VITALS: BMI 22.6
[~2019-12-27 08:57] MED LIST changes: +COZAAR25 MG PO; +STIOLTO RESPIMAT4 GM INH
== END | disposition home or self-care (01) ==
LOC: D.HCCECHO 08:57
PROVIDERS: ATTEND Internal Medicine Cardiovascular Disease
DX: I25.10 Atherosclerotic heart disease of native coronary artery without angina pectoris (principal)

== ENCOUNTER 2020-01-08 07:51 | Outpatient (CLI) | payer MEDICARE ==
[~2020-01-08] VITALS: Ht 162.6 cm; Wt 60.0 kg
--- NOTE | ~2020-01-08 | HEMODYNAMI ---
PATIENT:SARAH CHURCH MEDICAL RECORD: [id number] : 49 LOCATION:[facility] ADMISSION DATE: 01/08/20 Generatedon:01/08/202010:42 Patient name: SARAH CHURCH Patient #: [id number] : 1945 Date of study: 01/08/2020 Page: Of Hemodynamic Procedure Report Patient Data Patient Demographics Procedure consent was obtained First Name: SARAH Gender: Male Last Name: RANJIT : 1945 [facility] Initial: J Age: 74 year(s) Patient #: [id number] Race: SSN: [id number] Additional ID: [id number] Contact details Address: [address] [place] [address] State: [place] City: [place] Zip code: [address] Past Medical History Performed procedures and imaging results Date Procedure Procedure Results Comments 12/27/2019 Echocardiography 12/27/2019 Stress testing Positive->Intermediate with SPECT MPI risk Allergies: No known allergies Admission Admission Data Admission Date: 01/08/2020 Admission Time: 7:51 Arrival Date: 01/08/2020 Arrival Time: 0:00 Admit Source: Other Insurance Payor: Medicare [facility] #: [id number] Height (in.): 64 BSA: 1.64 (m2) Height (cm.): 162.56 BMI: 22.71 (kg/m2) Weight (lbs.): 132.28 Weight (kg.): 60 Lab Results Lab Result Date: 01/08/2020 Lab Result Time: 0:00 Biochemistry Name Units Result Min Max BUN mg/dl 16 --(---*)-- 7 18 Creatinine mg/dl 1.1 --(--*-)-- 0.6 1.3 eGFR ml/min 70.75034 *-(----)-- 90 120 NONAFRICAN CBC Name Units Result Min Max Hematocrit % 39.7 -*(----)-- 42 54 Hemoglobin g/dl 13.4 -*(----)-- 13.5 17.5 Procedure Procedure Types Cath Procedure Diagnostic Procedure [facility] w/Coronaries FFR/IVUS FFR Initial FFR Additional Sedation Charges Moderate Sedation up to 45 minutes PCI Procedure PTCA PTCA Initial Hemochron ACT Test Procedure Description Procedure Date Procedure Date: 01/08/2020 Procedure Start Time: 9:53 Procedure End Time: 10:39 Procedure Staff Name Function Vinod Trivedi MD Performing Physician Mili Patel RT Monitor Hung Flores RT Scrub Eduar Louise RN Nurse Procedure Data Cath Procedure Fluoroscopy Diagnostic fluoroscopy Total fluoroscopy Time: 6.1 time: 6.1 min min Diagnostic fluoroscopy Total fluoroscopy dose: 505 dose: 505 mGy mGy Contrast Material Contrast Material Type Amount (ml) Isovue 370 87 Entry Location Entry Primary Successful Side Size Upsize Upsize Entry Closure Succes sful Closure Location (Fr) 1 (Fr) 2 (Fr) Remarks Device Remarks Femoral Right 5 Fr 6 Fr Exoseal artery Short Estimated blood loss: 10 ml Diagnostic catheters Device Type Used For End Catheter Placement MULTIPACK JL 4.0 5Fr Procedure catheter MULTIPACK 3DRC 5Fr Procedure catheter MULTIPACK Pigtail 5 Fr Procedure catheter Procedure Complications No complications Procedure Medications Medication Administration Route Dosage Oxygen etCO2 Nasal cannula 2 l/min Lidocaine 2% added to field 20 Heparin Flush Bag added to field 2 bags (1000units/500ml NS) 0.9% NaCl I.V. 100 ml/hr Versed I.V. 1 mg Fentanyl I.V. 50 mcg Versed I.V. 1 mg Fentanyl I.V. 50 mcg Heparin Bolus I.V. 2000 units Versed I.V. 1 mg Heparin Bolus I.V. 4000 units Nitroglycerin IC/IA I.C. 50 mcg Radial Cocktail added to field 1 syringe (Verapamil 2mg/Nitro 400mcg/Heparin 1500units) Hemodynamics Rest BSA: 1.64 (m2) O2 Consumption: Estimated: 179.58 (ml/min) O2 Consumption indexed : Estimated:109.5 (ml/min/m) Heart Rate: 54 (bpm) Pressure Samples Time Site Value (mmHg) Purpose Heart Use Rate(bpm) 10:08 LV 76/0,8 Snapshot 92 10:09 AO 113/45(71) Pullback 59 10:09 LV 111/-3,8 Pullback 59 Gradients Valve Time Site 1 Site 2 Mean SEP/DFP Peak To Heart Use (mmHg) (sec/min) Peak Rate (mmHg) (bpm) Aortic 10:09 LV AO 0 4 0 59 111/-3,8 113/45(71) Calculations Valve P-P Mean Valve Index Valve Source Name Gradient Area Flow (cm2) Aortic 0 0 0 0 Snapshots Pre Cath Intra NCS Post Cath Vital Signs Time Heart Resp SPO2 etCO2 NIBP (mmHg) Rhythm Pain Sedation Rate (ipm) (%) (mmHg) Status Level (bpm) 9:39:46 48 14 99 31.8 175/82(144) NSR 0 (11) 10(A) , No pain 9:44:04 48 13 100 34.8 134/63(98) NSR 0 (11) 10(A) , No pain 9:48:19 54 22 100 26.5 129/61(97) NSR 0 (11) 10(A) , No pain 9:52:31 50 13 100 32.5 121/62(97) NSR 0 (11) 10(A) , No pain 9:56:38 50 15 100 26.4 119/62(95) NSR 0 (11) 9(A) , No pain 10:00:46 47 13 100 18.1 116/60(96) NSR 0 (11) 9(A) , No pain 10:04:52 53 15 99 28.7 115/63(95) NSR 0 (11) 9(A) , No pain 10:08:58 70 13 99 26.5 99/60(89) NSR 0 (11) 9(A) , No pain 10:13:00 54 14 99 19.6 113/63(103) NSR 0 (11) 9(A) , No pain 10:17:07 53 13 99 35.5 108/57(85) NSR 0 (11) 9(A) , No pain 10:21:13 52 14 100 17.4 103/57(82) NSR 0 (11) 9(A) , No pain 10:25:17 50 15 100 23.4 116/59(95) NSR 0 (11) 9(A) , No pain 10:29:27 53 17 100 31.8 106/52(74) NSR 0 (11) 9(A) , No pain 10:33:32 51 14 100 25 102/53(82) NSR 0 (11) 9(A) , No pain 10:37:34 47 13 100 33.3 110/59(87) NSR 0 (11) 10(A) , No pain Medications Time Medication Route Dose Verified Delivered Reason Not es Effectiveness by by 9:42:40 Oxygen etCO2 2 l/min Vinod Buffie used for Nasal Farooq Louise RN procedure cannula 9:42:46 Lidocaine 2% added 20ml Vinod Vinod for local to vial Farooq Trivedi MD anesthetic field 9:42:52 Heparin Flush added 2 bags Vinod Vinod used for Bag to Farooq Trivedi MD procedure (1000units/500ml field NS) 9:43:05 0.9% NaCl I.V. 100 Vinod Buffie Per physician ml/hr Farooq Louise RN 9:50:17 Versed I.V. 1 mg Vinod Buffie for sedation Farooq Louise RN 9:50:36 Fentanyl I.V. 50 mcg Vinod Buffie for sedation Farooq Louise RN 10:01:16 Versed I.V. 1 mg Vinod Buffie for sedation Farooq Louise RN 10:01:20 Fentanyl I.V. 50 mcg Vinod Buffie for sedation Farooq Louise RN 10:06:22 Radial Cocktail added 1 Vinod Buffie was zelda, (Verapamil to syringe Farooq Louise RN femoral 2mg/Nitro field access 400mcg/Heparin obtained. 1500units) 10:12:08 Heparin Bolus I.V. 2000 Vinod Buffie for charles ified units Farooq Louise RN anticoagulation with dr trivedi for ifr 10:17:23 Versed I.V. 1 mg Vinod Buffie for sedation Farooq Louise RN 10:24:09 Heparin Bolus I.V. 4000 Vinod Buffie for charles ified units Farooq Louise RN anticoagulation with dr trivedi 10:31:59 Nitroglycerin I.C. 50 mcg Vinod Vinod for IC/IA Farooq Trivedi MD vasodilation Procedure Log Time Note 9:16:59 Informed consent obtained and on chart 9:27:12 Lab Result : Creatinine 1.1 mg/dl 9:27:12 Lab Result : BUN 16 mg/dl 9:27:12 Lab Result : eGFR NONAFRICAN 70.02586 ml/min 9:27:12 Lab Result : Hematocrit 39.7 % 9:27:12 Lab Result : Hemoglobin 13.4 g/dl 9:27:43 Patient allergic to No known allergies 9:28:33 Admit Source: Other 9:28:57 Eduar Louise RN sent for patient. Start room use. 9:29:01 Procedure Status Elective Heart Cath (OP). 9:29:03 Time tracking: Regular hours (M-F 7:00 - 5:00) 9:29:07 Plan of Care:Hemodynamics will remain stable., Cardiac rhythm will remain stable., Comfort level will be maintained., Respiratory function will remain adequate., Patient/ family verbilizes understanding of procedure., Procedure tolerated without complication., Recovers from procedure without complications.. 9:29:13 Lab results completed and on chart. 9:29:35 Stress Test: yes; abnormal inferior, apical and septal 9:29:38 Risk of Mortality: 0.1 9:29:40 Risk of blood transfusion: 1.1 9:29:43 Risk of AMANUEL: 0.7 9:29:45 Alarms reviewed by R. N. 9:29:45 Sharps counted by scrub and verified by R.N. 9:31:44 Arrival Date: 01/08/2020 12:00:00 AM 9:31:48 Patient Height : 64 inches 9:31:52 Patient Weight : 132.28 lbs 9:32:31 Insurance Payor : Medicare 9:33:31 Patient received from Pre/Post Procedure Room to [facility] 1 Alert and oriented. Tansferred to table in Supine position. 9:33:33 Warm blankets applied, and hilary hugger turned on for patient comfort. 9:33:34 Correct patient and procedure confirmed by team. 9:33:34 ECG and BP/O2 sat monitors applied to patient. 9:33:35 Vital chart was started 9:33:48 H&P Date Dictated: 12/25/2019 Within 30 days and on chart.. 9:33:49 Pre-procedure instructions explained to patient. 9:33:49 Pre-op teaching completed and patient verbalized understanding. 9:33:51 Family unavailable. 9:33:52 Patient NPO since Midnight. 9:33:54 Is the patient allergic to Iodine/contrast media? No. 9:34:00 Was the patient premedicated? N/A 9:34:04 Is patient on blood thinner?Yes 9:34:06 ACC The patient was administered the following blood thiners within the last 24 hours: ACCPlavix 9:34:08 Patient diabetic? No. 9:34:09 If diabetic: On Metformin? N/A 9:34:10 ----Pre-sedation anethsthesia assessment.---- 9:34:12 Previous problem with sedation/anesthesia? No ? 9:34:14 Snore? Yes 9:34:15 Sleep apnea? No 9:34:16 Deviated septum? No 9:34:18 Opens mouth fully? Yes 9:34:19 Sticks out tongue? Yes 9:34:21 Airway obstruction? Yes COPD 9:34:28 Dentures? Yes IN TIGHT 9:34:31 Patient pain scale 0/10 ?. 9:34:46 IV patent on arrival in left antecubital with 0.9% NaCl at [facility]. 9:39:00 Family of pt, sister Suma and sister Denise have been updated. 9:42:40 Oxygen 2 l/min etCO2 Nasal cannula was administered by Eduar Louise RN; used for procedure; Verbal order read back and verified. 9:42:46 Lidocaine 2% 20ml vial added to field was administered by Vinod Trivedi MD; for local anesthetic; Verbal order read back and verified. 9:42:52 Heparin Flush Bag (1000units/500ml NS) 2 bags added to field was administered by Vinod Trivedi MD; used for procedure; Verbal order read back and verified. 9:43:05 0.9% NaCl 100 ml/hr I.V. was administered by Eduar Louise RN; Per physician; Verbal order read back and verified. 9:47:27 Right Radial & Right Groin area was prepped with chlora-prep and draped in sterile fashion 9:47:33 Pre procedure: right dorsailis pedis pulse 1+ Palpable, but thready & weak; easily obliterated 9:47:39 Use device set Radial Dx or PCI 9:47:46 Full Disclosure recording started 9:47:47 Baseline sample Acquired. 9:47:51 Rhythm: sinus bradycardia 9:47:53 ACIST Syringe (91845) opened to sterile field. 9:47:54 Medline Cath Pack ([id number]) opened to sterile field. 9:47:55 Bag Decanter () opened to sterile field. 9:47:55 ACIST Hand Control (55115) opened to sterile field. 9:47:56 ACIST Manifold (14363) opened to sterile field. 9:47:57 MBrace Wrist Support ([id number]) opened to sterile field. 9:47:58 NEEDLE Cook 21G 4cm Radial (U81784) opened to sterile field. 9:48:00 EMERALD Guide Wire (502-892) opened to sterile field. 9:48:00 SHEATH 6FR RAIN (2383617) opened to sterile field. 9:49:25 --------ALL STOP TIME OUT------ 9:49:26 Final Timeout: patient, procedure, and site verified with staff and physician. All members of the team are in agreement. 9:49:28 Right Radial & Right Groin site verified by team. 9:49:31 Fire Safety Assessment: A--An alcohol-based skin anteseptic being used preoperatively., C--Open oxygen or nitrous oxide is being used., D--An ESU, laser, or fiber-optic light is being used. 9:49:35 Physical assessment completed. ASA score P 2 - A patient with mild systemic disease as per Vinod Trivedi MD. 9:49:39 2) 60-89 Mildly reduced kidney function, and other findings (as for stage 1) point to kidney disease. 9:49:42 Maximum allowable contrast dose (3.7 X eGFR X 0.75)194 ml. 9:49:46 Sedation plan: IV Moderate Sedation Medication:Versed, Fentanyl 9:50:17 Versed 1 mg I.V. was administered by Eduar Louise RN; for sedation; Verbal order read back and verified. 9:50:36 Fentanyl 50 mcg I.V. was administered by Eduar Louise RN; for sedation; Verbal order read back and verified. 9:52:55 Procedure started. 9:53:02 Local anesthetic to right radial artery with Lidocaine 2% by Vinod Trivedi MD.INITIAL ACCESS ONLY 9:57:40 UNABLE TO ABOTAIN ACCESS RADIAL GOING GROIN. 9:57:50 Local anesthetic to right femoral artery with Lidocaine 2% by Vinod Trivedi MD.ADDITIONAL ACCESS 9:57:56 Use device set Femoral Dx 9:58:07 DIAGNOSTIC Multipack 5Fr catheter set (QI0179) opened to sterile field. 9:59:01 SHEATH 5FR Mercer (PXA579) opened to sterile field. 10:01:16 Versed 1 mg I.V. was administered by Eduar Louise RN; for sedation; Verbal order read back and verified. 10:01:20 Fentanyl 50 mcg I.V. was administered by Eduar Louise RN; for sedation; Verbal order read back and verified. 10:02:17 A 5 Fr sheath was inserted into the Right Femoral artery 10:02:29 A MULTIPACK JL 4.0 5Fr catheter was advanced over the wire and used for Procedure. 10:02:47 LCA angiography performed. 10:02:55 Injector settings: Ml/sec: 3, Volume: 6, 10:03:57 Catheter exchanged over wire. 10:05:51 A MULTIPACK 3DRC 5Fr catheter was advanced over the wire and used for Procedure. 10:06:15 Injector settings: Ml/sec: 3, Volume: 6, 10:06:22 Radial Cocktail (Verapamil 2mg/Nitro 400mcg/Heparin 1500units) 1 syringe added to field was administered by Eduar Louise RN; ; wasted, femoral access obtained. Verbal order read back and verified. 10:06:52 ACCDominant side:Right 10:06:59 Catheter exchanged over wire. 10:07:26 A MULTIPACK Pigtail 5 Fr catheter was advanced over the wire and used for Procedure. 10:08:01 LV gram done using ZACARIAS 10:08:47 LV hemodynamics recorded. 10:08:53 Injector settings: Ml/sec: 10, Volume: 20, 10:09:01 EF : 60 % 10:09:23 Catheter exchanged over wire. 10:09:47 Proceeding to intervention. 10:09:52 Use device set TRIVEDI PCI 10:10:14 [place] Verrata Plus pressure wire (52084R) opened to sterile field. 10:10:18 INFLATOR Merit BasixCompak (UR1996) opened to sterile field. 10:10:19 TUBING High Pressure Extension Tubing (Farooq) (PA9817P) opened to sterile field. 10:11:53 5 Fr JL 4 guide catheter was inserted over the wire 10:12:08 Heparin Bolus 2000 units I.V. was administered by Eduar Louise RN; for anticoagulation; verified with dr trivedi for ifr Verbal order read back and verified. 10:12:43 Zero performed for pressure channel P1 10:13:49 FFR/IFR wire advanced. 10:14:32 Zero performed for pressure channel P1 10:16:37 Wire advanced across lesion. 10:16:45 LAD lesion measured at .95 with IFR 10:16:49 LAD lesion measured at .98 with IFR 10:17:23 Versed 1 mg I.V. was administered by Eduar Louise RN; for sedation; Verbal order read back and verified. 10:17:57 OM1 lesion measured at .99 with IFR 10:18:40 OM1 lesion measured at .98 with IFR 10:23:07 Wire removed. 10:23:10 Guide catheter removed. 10:23:31 SHEATH 6FR Mercer (EZV053) opened to sterile field. 10:23:40 Sheath upsized to a 6 Fr Short. 10:24:09 Heparin Bolus 4000 units I.V. was administered by Eduar Louise RN; for anticoagulation; verified with dr trivedi Verbal order read back and verified. 10:24:20 BMW 300cm Banco 2 J wire ([id number]) opened to sterile field. 10:24:39 GUIDE 6FR JR 4.0 catheter ([id number]) opened to sterile field. 10:24:49 6 Fr JR 4 guide catheter was inserted over the wire 10:26:26 BMW 300 wire advanced. 10:26:31 Wire advanced across lesion. 10:27:19 Pre PCI Site: Agdaagux dRCA has 90% stenosis. 10:29:21 Inflate balloon Inflation number: 1 A EMERGE OTW 2.5 x 20 balloon ([id number]) was prepped and advanced across the Dist RCA 90, then inflated to 16 VALERIE for 0:00 (min:sec) . 10:30:11 Inflation number: 2 The EMERGE OTW 2.5 x 20 balloon ([id number]) was reinflated across the Dist RCA , to 16 VALERIE for 0:00 (min:sec) . 10:31:59 Nitroglycerin IC/IA 50 mcg I.C. was administered by Vinod Trivedi MD; for vasodilation; Verbal order read back and verified. 10:35:10 Balloon removed over the wire. 10:35:11 Wire removed. 10:35:12 Guide catheter removed. 10:35:15 EXOSEAL 6Fr (EX600) opened to sterile field. 10:35:26 Sheath removed intact; hemostasis achieved with Exoseal to the Right Femoral artery. 10:35:33 Procedure ended.(Physican Out) 10:35:37 Fluoroscopy time 06.10 minutes. 10:35:42 Fluoroscopy dose: 505 mGy 10:35:42 Flurop Dose total: 505 10:35:48 Dose Area Product 48149 mGy/cm. 10:35:53 Contrast amount:Isovue 370 87ml. 10:35:58 Maximum allowable dose exceeded? No. 10:35:59 Sharps counted by scrub and verified by R.N. 10:36:06 Post-op/insertion site Right Femoral artery dressed using a 4 x 4 and Tegaderm. 10:36:11 Post-op/insertion site Right Radial artery dressed using a Bandaid. 10:36:17 Post right femoral artery:stable, soft, clean and dry 10:36:19 Post Procedure Pulses reassessed and unchanged 10:36:23 Post procedure: right dorsailis pedis pulse 1+ Palpable, but thready & weak; easily obliterated. 10:36:27 Post-procedure physical assessment completed. ASA score P 2 - A patient with mild systemic disease as per Vinod Trivedi MD. 10:36:30 Post procedure rhythm: unchanged. 10:36:33 Estimated blood loss: 10 ml 10:36:36 Post procedure instruction explained to patient.Patient verbalizes understanding. 10:36:39 Patient needs reinforcement of post procedure teaching. 10:37:53 Procedure type changed to Cath procedure, Diagnostic procedure, LHC, [facility] w/Coronaries, FFR/IVUS, FFR Initial, FFR Additional, Sedation Charges, Moderate Sedation up to 45 minutes, PCI procedure, PTCA, PTCA Initial, Hemochron ACT Test 10:38:50 Procedure and supply charges have been captured, reviewed, submitted and are correct. 10:38:54 Procedure Complication : No complications 10:38:57 Vital chart was stopped 10:39:00 [facility] Findings: MVD- PCI performed (see procedure note) 10:39:02 Operative report dictated upon procedure completion. 10:39:03 See physician's report for complete and final results. 10:39:05 Report given to Pre/Post Procedure Room. 10:39:09 Patient transfered to Pre/Post Procedure Room with Stretcher. 10:39:11 Procedure ended. 10:39:11 Full Disclosure recording stopped 10:39:23 ACC-PCI Only Patient was given prescriptions, or instructed by Vinod Trivedi MD to start/continue the following medications upon discharge: Plavix 10:39:25 End room use (Document Last) 10:40:04 End room use (Document Last) 10:40:22 End room use (Document Last) 10:40:52 ACT drawn and resulted at out of range high seconds. (normal therapeutic range 180-240 seconds). Intervention Summary Intervention Notes Time ActionType Lesion and Equipment Action# Pressure Duration Attributes Used 10:29:21 Inflate Dist RCA EMERGE OTW 1 16 00:00 balloon 2.5 x 20 balloon ([id number]) 10:30:11 Reinflate Dist RCA EMERGE OTW 2 16 00:00 balloon 2.5 x 20 balloon ([id number]) Device Usage Item Name Manufacture Quantity Catalog Number Hospital Part Current Minimal Lot# / Charge Number Stock Stock Serial# Code ACIST Acist 1 84332 [id number] 308021 733440 20 Syringe Medical (32305) Systems Inc Medline Cath Medline 1 [id number] 39821 494011 5 Pack ([id number]) Bag Decanter Microtek 1 251014 79013 017064 5 () Medical Inc. ACIST Hand Acist 1 28503 280649 110201 767159 5 Control Medical (49357) Systems Inc ACIST Acist 1 96195 810863 069695 166632 5 Manifold Medical (82813) Systems Inc MBrace Wrist Advanced 1 140-0250-00 283325 17710 247469 5 Support Vascular (395427184) Dynamics NEEDLE Topguest 1 N62423 787600 150517 633966 5 21G 4cm Radial (V15242) EMERALD Cardinal 1 756-356 784991 986596 683561 5 Guide Wire [facility] (065-547) SHEATH 6FR Cardinal 1 9878799 475713 1630108 318423 5 [facility] (2360342) DIAGNOSTIC Cardinal 1 AD3636 125903 40314 011595 30 Multipack Health 5Fr catheter set (GH5893) SHEATH 5FR Terumo 1 ZRA732 811684 797831 273519 5 Mercer (RTA737) MULTIPACK JL Cardinal 1 063104 5 4.0 5Fr Health catheter MULTIPACK Cardinal 1 532543 5 3DRC 5Fr Health catheter MULTIPACK Cardinal 1 231251 5 Pigtail 5 Fr Health catheter [place] 1 34820P 312545 [id number] 112244 5 Verrata Plus pressure wire (48030G) INFLATOR Merit 1 AZ3584 531473 477796 779642 15 Merit Medical BasixCompak (AU5222) TUBING High Merit 1 [id number] 434326 75983 489293 10 Pressure Medical Extension Tubing (Trivedi) (RS3145P) SHEATH 6FR Terumo 1 YXT343 578906 140634 365522 40 Mercer (DGP758) BMW 300cm Bowling 1 [id number] 465357 463174 551577 5 Banco 2 Vascular J wire (3866812U) GUIDE 6FR JR Medtronic 1 [id number] 105644 97687 018871 1 4.0 catheter (CQ6QQ65) EMERGE OTW [place] 1 [id number] 211858 747496 306207 5 [id number] 2.5 x 20 Scientific balloon ([id number]) EXOSEAL 6Fr Cardinal 1 EX600 322657 471893 088667 10 (EX600) Health Signature Audit [place] Stage Time Signature Unsigned Intra-Procedure 01/08/2020 Mili Patel 10:40:04 AM RT(R) Intra-Procedure 01/08/2020 Eduar Louise RN 10:40:22 AM Intra-Procedure 01/08/2020 Vinod Trivedi MD 10:42:10 AM [facility] [address] [place] [address]
[2020-01-08] MEDS ORDERED: FUROSEMIDE20 MG PO (08:53)
[2020-01-08 09:05] VITALS: BP 169/69; Ht 162.6 cm; Wt 60.0 kg
[2020-01-08 09:11] LABS: HEMATOCRIT 39.7 % (42.0-54.0); HEMOGLOBIN 13.4 g/dL (13.5-17.5); LYMPHOCYTES 26.3 % (15-50); MCH 31.7 pg (26.0-34.0); MCHC 33.8 g/dL (31.0-37.0); MCV 93.9 fL (80.0-100.0); MEAN PLATELET VOLUME 9.6 fL (7.4-10.4); NEUTROPHILS 55.1 % (40-80); PLATELET COUNT 129 10x3/uL (130-400); RBC 4.23 10x6/uL (4.20-6.10); RDW 12.9 % (11.5-14.5); WBC 4.5 10x3/uL (4.8-10.8)
[2020-01-08 09:18] LABS: CALCIUM 8.8 mg/dL (8.5-10.1); CARBON DIOXIDE 28.4 mmol/L (21.0-32.0); CHOL - HDL RATIO 3.1 ratio (2.3-4.9); CREATININE - SERUM 1.1 mg/dL (0.6-1.3); LDL-HDL RATIO 1.8 ratio (1.5-3.5); POTASSIUM - SERUM 4.4 mmol/L (3.5-5.1)
--- NOTE | 2020-01-08 10:50 | NUR ---
PT ARRIVED BY STRETCHER. PLACED ON MONITORS. ASSESSMENT COMPLETED. VSS AT THIS TIME. CALL LIGHT WITHIN REACH.
--- NOTE | 2020-01-08 11:04 | NUR ---
RIGHT GROIN DRESSING C/D/I. NO S/S OF HEMATOMA NOTED. CALL LIGHT WITHIN REACH. VSS. RIGHT WRIST DRESSING C/D/I. NO S/S OF HEMATOMA NOTED. HR 46. BP 123/56.
--- NOTE | 2020-01-08 11:34 | NUR ---
PT RESTING COMFORTABLY. VSS. RIGHT GROIN DRESSING C/D/I. NO S/S OF HEMATOMA NOTED. CALL LIGHT WITHIN REACH.
--- NOTE | 2020-01-08 12:09 | NUR ---
PT RESTING COMFORTABLY. VSS. RIGHT GROIN DRESSING C/D/I. NO S/S OF HEMATOMA NOTED. CALL LIGHT WITHIN REACH. NO NEEDS AT THIS TIME.
--- NOTE | 2020-01-08 12:40 | NUR ---
PT RESTING COMFORTABLY. VSS. RIGHT GROIN DRESSING C/D/I. NO S/S OF HEMATOMA NOTED. CALL LIGHT WITHIN REACH. NO NEEDS AT THIS TIME.
--- NOTE | 2020-01-08 13:30 | NUR ---
RIGHT GROIN DRESSING C/D/I. NO S/S OF HEMATOMA NOTED. CALL LIGHT WITHING REACH. VSS AT THIS TIME. HEAD OF BED INC TO 30 DEGREES. TOLERATED WELL. RIGHT WRIST BANDAID C/D/I. NO S/S OF HEMATOMA NOTED. PT DOES NOT WANT FOOD AT THIS TIME. DID SET HIM UP WITH A CUP OF COFFEE. DENIES NAUSEA/PAIN.
--- NOTE | 2020-01-08 14:00 | NUR ---
RIGHT GROIN DRESSING C/D/I. NO S/S OF HEMATOMA NOTED. CALL LIGHT WITHIN REACH. VSS AT THIS TIME. PIV D/C'D WITH CATH TIP INTACT. TOLERATED WELL. PT INSTRUCTED TO GET UP AND DRESSED AT THIS TIME. NO ASSISTANCE NEEDED.
--- NOTE | 2020-01-08 14:25 | NUR ---
DISCUSSED DISCHARGE INSTRUCTIONS WITH PT AND PT'S SISTER. THEY VOICED UNDERSTANDING. PT AMBULATED TO RESTROOM AND VOIDED WITHOUT DIFFICULTY. STEADY GAIT NOTED.
--- NOTE | 2020-01-08 14:35 | NUR ---
PT TAKEN DOWN TO VEHICLE BY WHEELCHAIR. NO S/S OF DISTRESS NOTED. ALL BELONGINGS AND PAPERWORK IN HAND. RIGHT WRIST DRESSING C/D/I. RIGHT GROIN DRESSING C/D/I. NO S/S OF HEMATOMA NOTED.
== END 2020-01-08 14:35 | disposition home or self-care (01) ==
LOC: D.CATH 07:51
PROVIDERS: ATTEND Internal Medicine Cardiovascular Disease
DX: I25.119 Atherosclerotic heart disease of native coronary artery with unspecified angina pectoris (principal); R06.00 Dyspnea, unspecified; I48.0 Paroxysmal atrial fibrillation

== ENCOUNTER 2020-02-07 08:29 | Outpatient (CLI) | payer MEDICARE ==
[~2020-02-07] VITALS: Ht 165.1 cm; Wt 63.5 kg
[~2020-02-07 08:29] MED LIST changes: +FUROSEMIDE20 MG PO
[2020-02-07 08:54] LABS: BASOPHILS 0.9 % (0-2); CALCIUM 9.1 mg/dL (8.5-10.1); CARBON DIOXIDE 29.1 mmol/L (21.0-32.0); CREATININE - SERUM 1.1 mg/dL (0.6-1.3); HEMATOCRIT 42.4 % (42.0-54.0); LYMPHOCYTES 27.3 % (15-50); MEAN PLATELET VOLUME 10.2 fL (7.4-10.4); MONOCYTES 11.1 % (2-11); NEUTROPHILS 52.7 % (40-80); PLATELET COUNT 147 10x3/uL (130-400); POTASSIUM - SERUM 4.1 mmol/L (3.5-5.1); RBC 4.37 10x6/uL (4.20-6.10); RDW 13.5 % (11.5-14.5); WBC 4.5 10x3/uL (4.8-10.8)
[2020-02-07 08:59] LABS: APTT 28.7 SECONDS (22.8-39.4); INR 1.08 (0.85-1.17)
[2020-02-07 09:35] VITALS: BP 184/72; Ht 165.1 cm; Wt 63.5 kg
--- NOTE | 2020-02-07 14:03 | NUR ---
1344 RESULTS OF CXR VIEWED AND NO S/S OF PNEUMOTHORAX. VSS. COFFEE GIVEN TO PATIENT.
--- NOTE | 2020-02-07 15:11 | NUR ---
1430-DR GARCIA CALLED. PTS XRAY RESULTS ARE GOOD. PT CAN BE DISCHARGED HOME. NOTIFY PT THAT IF HE BECOMES SHORT OF BREATH TO RETURN TO ER.
--- NOTE | 2020-02-07 15:12 | NUR ---
1500-REMOVED IV WITH CATH INTACT,DISPOSED INTO SHARPS,COVERED WITH MEDIPORE TAPE.REVIEWED POST OP INSTRUCTIONS. PT VERBALIZES UNDERSTANDING AND WILL RETURN TO ER IF SHORTNESS OF BREATH OCCURS.
--- NOTE | 2020-02-07 15:13 | NUR ---
1505-PT DRESSED.VSS.DRESSING CDI. NO DISTRESS,NO N/V. ESCORTED OUT VIA W/C WITH SISTER AWAITING TO DRIVE HOME
== END 2020-02-07 15:05 | disposition home or self-care (01) ==
LOC: D.SP 08:29 → D.CT 11:00 → D.SP 15:05
PROVIDERS: General Practice; ATTEND Internal Medicine Pulmonary Disease
DX: R91.8 Other nonspecific abnormal finding of lung field (principal)

== ENCOUNTER → 2020-03-27 16:36 | Outpatient (CLI) | payer MEDICARE ==
[2020-02-07 09:35] VITALS: BMI 23.3
== END | disposition home or self-care (01) ==
LOC: D.CT 16:30
PROVIDERS: ATTEND Thoracic Surgery (Cardiothoracic Vascular Surgery)
DX: R91.1 Solitary pulmonary nodule (principal)

== ENCOUNTER → 2021-01-07 14:34 | Outpatient (CLI) | payer MEDICARE, MEDICAID ==
[2020-02-07 09:35] VITALS: BMI 23.3
== END | disposition home or self-care (01) ==
LOC: D.RT 11-06 13:00
PROVIDERS: ATTEND Internal Medicine Pulmonary Disease
DX: J44.9 Chronic obstructive pulmonary disease, unspecified (principal)